=== PATIENT | male | born 1995 | race Caucasian/White ===

== ENCOUNTER 2017-02-17 10:54 | Day surgery (SDC) | payer OTHER ==
--- NOTE | 2017-02-17 07:35 | PDGENHP ---
History and Physical - Chief Complaint Hip Pain - History of Present Illness 1. Right~hip Dysplasia, S/p failed hip arthroscopy 11/06 for USAMA 2. 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 Left borderline Hip Dyplasia 4. Retro-Torsion HISTORY OF PRESENT ILLNESS: Rosalinais a 21 y.o.~very ~active male~who I have had the pleasure to consult on today. I have enjoyed meeting him. He~lives in [facility]. 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 ~He~is engaged; he~has no~children. Rosalina enjoys Hiking and all sports. Shavons has bilateral~hip pain, the Right hip started in November 2014 after he fell while hiking when his foot got caught on a tree root and he fell and twisted the leg. After this he was unable to run without pain, this persisted and he had a Right hip scope in October [address] Mckeon at the [facility]. He felt better for the first several weeks after surgery, while his activity was limited, but as soon as his activity increased his pain returned. His Left hip started bothering him in the past month or two, on this side he had no inciting injury or event. Prior to the fall he never had any hip pain, but he has always had limited ROM in the hips. Rosalinahas~a known history of hip dysplasia. Presentation today is of anterior bilateral~hip pain. The hip does~wake him~at night if he doesn't have a pillow between his legs; and does~click and catch on him. Sitting does not present a problem~for him. Rosalinadoes~report suffering from lower back pain episodes. Rosalinahas~participated in physical therapy and has~tried other conservative measures including massage therapy. He~has not~received sufficient symptomatic improvement. Rosalinahas not~utilized medication for pain management. Rosalinaunderstands that he~has a hip and pelvis problem which should be researched and wishes to get a better understanding of his~hip status, followed by an establishment of a treatment strategy, hoping he~would be able to get back to his~well being active life. History: Past medical history: ~ None which is relevant Relevant familial history: None which is relevant Past surgical history: No. Surgery Anesthesia Year Outcome 1 Tonsils General 1999 Good 2 Right Hip Scope General 2016 Poor Rosalinadenies problematic issues with general anesthesia in the past. I have reviewed, verified and agree with the past medical, surgical, family and social history. Current Medications:~currently has no medications in their medication list. ALLERGIES:~has No Known Allergies. Objective: Physical Examination: Rosalinais 5~feet 6~inches tall and weighs 167~Lbs. Rosalinais AAO x3; he~is well- nourished, in NAD. Skin is warm and dry. ~Breathing is non-labored. ~CV with RRR by pulse. Abdomen is soft, NTND. Currently, he~walks with a normal~gait. Trendelenburg sign is positive on the Right~and proprioception is normal, both~ sides. He~presents with no~signs of joint laxity. Beightons Score: 0 He~is fit looking. ~~ Lower spine examination is negative~for sciatic or femoral nerve irritation with negative~SLR &~femoral stretch tests. Range of motion of the spine is normal~for flexion, extension, and rotations, with no~associated pain. Strength, Sensation and pulses are normal - bilaterally Ankles and knees exams are normal~and no~mal-alignment is evident. He~has no leg length discrepancy. Thigh circumference is symmetric~with no evidence for muscle atrophy~on both~ sides. Hip ROM (degrees): FL ER At 90~hip FL IR At 90~hip FL AB AD EX IR Neutral hip ER Neutral hip R 100 45 15 35 5 5 20 45 L 105 40 15 40 5 5 30 25 Specific hip and pelvis tests: Quadrant PING Roll Add. Longus R +++ +++ Negative + L ++ Negative Negative Negative Glut. Med ITB Pos. Imp R Negative 5/5 strength Negative 5/5 strength Negative L Negative 5/5 strength Negative 5/5 strength Negative Squeeze test measured weak Bony Symphysis pubis is pain free~to touch while concentric activity of the rectus abdominis, does not~produce pain at its insertion. Ilio Psos specific tests are positive for pain during cycling for the right hip~ and remarkable for non painful snap~on both hips. HF has good strength with no pain on both hips. Anterior~capsule tenderness bilaterally. Greater trochanteric burse is pain free~on the left hip. Piriformis tests: FAIR is negative, with no~local signs of neuritis related to sciatic nerve. SIJs examination is normal~with normal~PING in relation and local tenderness. Hamstrings tests are negative~functional contraction and negative~tendinopathy both hips. On a daily basis, the following percentages reflect Steven's overall total Right hip~pain: Deep hip: 99% Low Back: 1% Imaging: Radiology studies which I have personally reviewed, analyzed and measured are below: XR: AP of the hip and pelvis: Performed in a suboptimal~technique Coccyx to pubic symphysis distance -0.8~cm. 10~degrees caudal [place] Lines are preserved. No~Pathological signs are seen in the Symphysis Pubis. No~Pathological signs are seen at the Ischial tuberosity. ~ Specific measurements show: NSA~ LCE Sourcil~Angle Sharp's angle Lat. Cam Lat. Pincer C.Over~sign Head~Coverage % ATDmm R N 17 14 41 - - - 65 N L N 23 12 41 - - - 72 N Pos. wall sign ISS NAD ~~Dysplasia Comments R + Negative 11~mm + L + Negative 12~mm + Sclerosis Sup. Lat. OA Cysts Joint Space-WBZ Joint Space-Medial R Negative Negative Negative 3.8~mm 4.9~mm L Negative Negative Negative 4.2~mm 4.5~mm X Table lateral: Anterior cam lesion is seen~on both hips. Alpha Angle: ~ Right 74~dergrees Left 98~degrees MRI Right Hip shows: Possible labral tear, cartilage intact on both sides CT: Possible anchor tracts anteriorly. Right hip: Lateral center edge angle: 15 degrees Anterior center edge angle: 45degrees Equatorial acetabular version angle: 21 degrees Cranial acetabular version angle: 4 degrees Femoral neck shaft angle: 136 degrees Femoral shaft torsion angle: (-9) degrees Left hip: Lateral center edge angle: 19 degrees Anterior center edge angle: 42 degrees Equatorial acetabular version angle: 29 degrees Cranial acetabular version angle: 10 degrees Femoral neck shaft angle: 140 degrees Femoral shaft torsion angle: (-4)~degrees Impression and plan: Steven~is a 21 y.o.~active male~suffering from symptomatic bilateral~hip pain (R >>>L) due to~right~Hip Dyplasia after failed scope 2016,~causing significant disability to him~and altering his~sport and life activities. Physical examination, imaging, and his~story correspond with the diagnosis mentioned above. I explained that hip dysplasia is a condition wherein the hip joint has excessive play~and instability due to a variety of factors, including the depth and adequacy of the socket, the orientation of the femur bone, and ligament laxity around the hip joint. Dysplasia ranges in severity from borderline to makeda, with treatment options being specific to the specific nature of the problem. Left untreated, the instability in the hip joint can cause progressive tearing of the labrum and deterioration of the surface cartilage, ultimately resulting in progressive osteoarthritis of the hip. I explained that femoroacetabular impingement (USAMA - Cam type) arises due to a bony or soft tissue conflict between the femur (ball) and acetabulum (socket) caused by an abnormality in the shape of the femoral head and neck. Over time, repetitive impingement can result in damage to the labrum and adjacent surface cartilage within the socket, ultimately giving rise to progressive osteoarthritis of the hip. I explained that although a labral tear can be a source of pain, it is rarely the root of the problem and typically occurs secondary to an underlying abnormality in the shape and mechanics of the hip joint. I reviewed conservative treatment options for Dysplasia and USAMA including activity modification to avoid positions of impingement or instability, physical therapy, non-steroidal anti-inflammatory medications, and various injections (corticosteroid and PRP) aimed at reducing inflammation in the hip joint or/and preventing dynamic instability and impingement. PRP injections may promote healing and reduce symptoms in certain cases but it will not repair chronically damaged tissue. Although these measures may help to buy time~and reduce current level of symptoms, they are not a definitive solution to the problem given the underlying abnormality in the shape of the hip joint. Patients who have failed conservative management and continue to experience symptoms are candidates for definitive surgical treatment, which may consist of hip arthroscopy alone or in combination with more invasive bony realignment procedures of the hip socket and/or femur called periacetabular osteotomy (HANNA) or derotational femoral osteotomy (DFO). Hip arthroscopy typically includes treating the labrum with either repair or reconstruction of the torn labrum; as well as addressing the underlying abnormalities by restoring the normal shape to the hip joint. If the cartilage is damaged a Microfracture surgical procedure may also be necessary to help stimulate the growth of fibrocartilage. If a patient requires a labral reconstruction or a Microfracture, the initial rehabilitation from the surgery may take longer, but the intermediate results are typically favorable. I reviewed the technical aspects of periacetabular osteotomy (HANNA) including risks, benefits, and expected course of recovery. Steven~understands that HANNA is an inpatient procedure carried out through two medium sized incisions on the front and back of the hip joint. The hip socket is cut, realigned, and stabilized with 2 3 internal screws. Risks include infection, bleeding, injury to nearby nerves or vessels, stiffness, persistent pain, instability, failure of bony healing, implant related complications, and venous thromboembolic disease. Rarely, revision surgery may be required to address these problems. Risks, potential complications, side effects and recovery from surgical procedure were discussed in length. We explained how this surgery is an open procedure, and though patients tend to do well in the long-term, it involves significant pain in the first 2-4 weeks post-op and a rather lengthy rehab.~Overall recovery takes approximately 6 12~months depending on the extent of damage and degree of repair. Steven~understands that he~will undergo hip arthroscopy 1 week prior to the HANNA to address damage inside the hip joint. Steven~understands that hip arthroscopy and HANNA are two separate procedures that are best performed one week apart, with the arthroscopy commencing first to "tighten up" any pathology evident in the hip joint (labral repair, etc.) and the HANNA open procedure occurring 7-10 days later to realign the acetabulum. I reviewed the technical aspects of derotational femoral osteotomy (DFO) including risks, benefits, and expected course of recovery.~Steven~understands that DFO is a minimally invasive inpatient procedure carried out through a small incision on the outer aspects of the hip joint. The femur bone is cut, realigned, and stabilized with a pati. Risks, potential complications, side effects and recovery from surgical procedure were discussed in length.~Steven~ understands that he/she will undergo hip arthroscopy 1 week prior to the DFO to address damage inside the hip joint to include labral repair and correction of Hip impingement. I reviewed the technical aspects of hip arthroscopy including risks, benefits, and expected course of recovery. Steven~understands that hip arthroscopy is a minimally invasive outpatient procedure carried out through small incisions on the outer aspect of the hip joint. During surgery, the labral tear will be identified and either repaired or reconstructed~using bone anchors and suture material. Additionally, any excessive bone will be removed with a high-speed gisela to reshape the hip joint and restore normal anatomy. Risks include infection, bleeding, injury to nearby nerves or vessels, stiffness, persistent pain, instability, venous thromboembolic disease, and traction related complications including temporary foot numbness. Rarely, revision surgery may be required to address these problems. Overall recovery takes approximately 4~ 8~months depending on the extent of damage and degree of repair. In the event that the labral tissue quality is inadequate for successful repair and healing, Rosalinaunderstands that a labral reconstruction will be performed. This procedure entails placing a cadaver tissue graft within the hip joint and stabilizing it with bone anchors to build a new labrum. The overall recovery time for labral reconstruction is similar to that of labral repair, although the surgical procedure takes longer to perform. Rosalinawill review the info presented. In order to obtain more detailed information regarding the alignment, orientation, and shape of the bony hip and pelvis I will order a CT scan to be performed. The results of the CT scan, including femoral torsion and acetabular version measured values and 3D images, will aid me in deciding on the best treatment strategy and surgical pre-planning. Rosalinawill talk with our surgical instrument maker about possible surgery dates. Rosalinais happy with this plan. I have also supplied him~with handouts, outlining the expected surgical treatment and rehab involved. I wish~Rosalinaall the best, ~~ Rony Koehler IV, MD History Information - Allergies/Home Medication List Allergies/Adverse Reactions: No Known Allergies Allergy (Unverified 01/15/17 16:54) Home Medications: NK [No Known Home Meds] 01/15/17 [Last Taken Unknown] I have personally reviewed and updated: medical history - Social History Smoking Status: Never smoked Review of Systems Review of Systems: Physical Exam Physical Exam:
[~2017-02-17 10:54] MED LIST: ACETAMINOPHEN 500 MG TAB PO ONE; PREGABALIN 150 MG CAP PO ONE; ceFAZolin 2 GM/SWFI 2 GM/20 ML SYR IVP ONE
[2017-02-17] MEDS ORDERED: LIDOCAINE 1% 2 ML INJ ID PRN (11:12)
[2017-02-17] MEDS ORDERED: LR 1,000 ML IV ONE (11:12)
[2017-02-17] MEDS ORDERED: EPINEPHrine 30 MG/30 ML MDV (0.1 MG/0.1 ML) ONE (11:13)
[2017-02-17] MEDS ORDERED: BUPIVACAINE 0.25% 30 ML SDV ONE (11:13)
[2017-02-17] MEDS ORDERED: ACETAMINOPHEN 500 MG TAB ONE (11:43)
[2017-02-17] MEDS ORDERED: ceFAZolin 2 GM/SWFI 20 ML SYR IVP ONE (11:44)
[2017-02-17] MEDS ORDERED: PREGABALIN 150 MG CAP ONE (11:44)
[2017-02-17] MEDS ORDERED: LR 500 ML IV PRN (13:26)
[2017-02-17] MEDS ORDERED: fentaNYL 100 MCG/2 ML INJ IVP PRN (13:26)
[2017-02-17] MEDS ORDERED: PROMETHAZINE HCL 25 MG/ML INJ IVP PRN (13:26)
[2017-02-17] MEDS ORDERED: MIDAZOLAM 2 MG/2 ML VIAL IVP ONE (13:26)
[2017-02-17] MEDS ORDERED: NALOXONE HCL 0.4 MG/ML INJ IVP PRN (13:26)
[2017-02-17] MEDS ORDERED: ONDANSETRON 4 MG/2 ML VIAL IVP PRN (13:26)
[2017-02-17] MEDS ORDERED: OXYCODONE/APAP 5/325 TAB PO PRN (13:26)
[2017-02-17] MEDS ORDERED: HYDROmorphONE/DILAUDID 1 MG/ML INJ IVP PRN (13:26)
[2017-02-17] MEDS ORDERED: ALBUTEROL 3 ML DEYVIAL IH PRN (13:26)
--- NOTE | 2017-02-17 13:26 | PDANEPAE ---
ANE History of Present Illness R Hip ANE Past Medical History - Cardiovascular History Hx Hypertension: No Hx Arrhythmias: No Hx Chest Pain: No Hx Coronary Artery / Peripheral Vascular Disease: No Hx CHF / Valvular Disease: No Hx Palpitations: No - Pulmonary History Hx COPD: No Hx Asthma/Reactive Airway Disease: No Hx Recent Upper Respiratory Infection: No Hx Oxygen in Use at Home: No Hx Sleep Apnea: No Sleep Apnea Screening Result - Last Documented: Negative - Neurologic History Hx Cerebrovascular Accident: No Hx Seizures: No Hx Dementia: No - Endocrine History Hx Diabetes: No - Renal History Hx Renal Disorders: No - Liver History Hx Hepatic Disorders: No - Neurological & Psychiatric Hx Hx Neurological and Psychiatric Disorders: No - Cancer History Hx Cancer: No - Congenital Disorder History Hx Congenital Disorders: No - GI History Hx Gastrointestinal Disorders: No - Other Health History Other Health History: R hip-possible labral tear,. R hip dysplasia - Chronic Pain History Chronic Pain: Yes (R hip) - Surgical History Prior Surgeries: R hip arthroscopy 8-16. tonsillectomy & root canal ANE Review of Systems Review of Systems: - Exercise capacity METS (RN): 4 METS ANE Patient History - Allergies Allergies/Adverse Reactions: No Known Allergies Allergy (Unverified 01/15/17 16:54) - Home Medications Home Medications: NK [No Known Home Meds] 01/15/17 [Last Taken Unknown] - NPO status NPO Since - Liquids (Date): 02/17/17 NPO Since - Liquids (Time): 09:30 NPO Since - Solids (Date): 02/16/17 NPO Since - Solids (Time): 21:00 - Smoking Hx Smoking Status: Never smoked ANE Labs/Vital Signs - Vital Signs Blood Pressure: 127/62 Heart Rate: 70 Respiratory Rate: 18 O2 Sat (%): 98 Height: 167.64 cm Weight: 75.75 kg ANE Physical Exam - Airway Neck exam: FROM Mallampati Score: Class 2 Mouth exam: normal dental/mouth exam - Pulmonary Pulmonary: clear to auscultation - Cardiovascular Cardiovascular: regular rate and rhythym - ASA Status ASA Status: I ANE Anesthesia Plan Anesthesia Plan: general endotracheal anesthesia
[2017-02-17] MEDS ORDERED: LIDOCAINE 2% 5 ML SDV ONE (14:27)
[2017-02-17] MEDS ORDERED: HYDROmorphONE/DILAUDID 2 MG/ML INJ ONE (14:27)
[2017-02-17] MEDS ORDERED: PROPOFOL 200 MG/20 ML VIAL ONE (14:28)
[2017-02-17] MEDS ORDERED: ROCURONIUM 50 MG/5 ML VIAL ONE ×2 (14:49→16:20)
[2017-02-17] MEDS ORDERED: DEXAMETHASONE 4 MG/ML VIAL ONE (14:50)
[2017-02-17] MEDS ORDERED: ONDANSETRON 4 MG/2 ML VIAL ONE (14:50)
[2017-02-17] MEDS ORDERED: RANITIDINE 50 MG/2 ML VIAL ONE (14:51)
[2017-02-17] MEDS ORDERED: SUGAMMADEX SODIUM 200 MG/2 ML VIAL IVP ONE (17:43)
--- NOTE | 2017-02-17 17:58 | POSTANESTH ---
Post Anesthetic Evaluation Cardiovascular Status: Normal, Stable Respiratory Status: Normal, Stable Level of Consciousness/Mental Status: Can Participate in Eval, Mildly Sleepy, Arousable Pain Control: Adequate, Prn Tx Ordered Nausea/Vomiting Control: Adequate, Prn Tx Ordered Complications Possibly Related to Anesthesia: None Noted
[2017-02-17 18:10] VITALS: PULSE 66
[2017-02-17 18:50] VITALS: RESP 18; TEMP 97.7; O2SAT 98
[2017-02-17 19:02] VITALS: BP 117/62
== END 2017-02-17 19:12 | disposition home or self-care (01) ==
LOC: FSGY 10:54 → EDSTATUS 11:00 → FSGY 19:12
PROVIDERS: ATTEND Orthopaedic Surgery Sports Medicine
PROC: 0SB94ZZ Excision of Right Hip Joint, Percutaneous Endoscopic Approach (ICD-10-PCS; principal; 2017-02-17 12:30)
PROC: 0SQ94ZZ Repair Right Hip Joint, Percutaneous Endoscopic Approach (ICD-10-PCS; principal; 2017-02-17 12:30)
DX: M25.851 Other specified joint disorders, right hip (principal); Q65.89 Other specified congenital deformities of hip; M16.2 Bilateral osteoarthritis resulting from hip dysplasia; M25.551 Pain in right hip; M25.552 Pain in left hip
CPT/HCPCS: C1713; J0171; J0690; J1100; J1170; J2250; J2405; J2704; J2780

== ENCOUNTER 2017-02-24 05:43 | Inpatient (IN) | payer OTHER ==
--- NOTE | 2017-02-20 21:19 | PDGENHP ---
History and Physical - Chief Complaint Right Hip Pain - History of Present Illness 1. Right~hip Dysplasia, S/p failed hip arthroscopy 11/06 for USAMA 2. 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 Left borderline Hip Dyplasia 4. Retro-Torsion HISTORY OF PRESENT ILLNESS: Rosalinais a 21 y.o.~very ~active male~who I have had the pleasure to consult on today. I have enjoyed meeting him. He~lives in [facility]. 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 ~He~is engaged; he~has no~children. Rosalina enjoys Hiking and all sports. Shavons has bilateral~hip pain, the Right hip started in November 2014 after he fell while hiking when his foot got caught on a tree root and he fell and twisted the leg. After this he was unable to run without pain, this persisted and he had a Right hip scope in October [address] Mckeon at the [facility]. He felt better for the first several weeks after surgery, while his activity was limited, but as soon as his activity increased his pain returned. His Left hip started bothering him in the past month or two, on this side he had no inciting injury or event. Prior to the fall he never had any hip pain, but he has always had limited ROM in the hips. Rosalinahas~a known history of hip dysplasia. Presentation today is of anterior bilateral~hip pain. The hip does~wake him~at night if he doesn't have a pillow between his legs; and does~click and catch on him. Sitting does not present a problem~for him. Rosalinadoes~report suffering from lower back pain episodes. Rosalinahas~participated in physical therapy and has~tried other conservative measures including massage therapy. He~has not~received sufficient symptomatic improvement. Rosalinahas not~utilized medication for pain management. Rosalinaunderstands that he~has a hip and pelvis problem which should be researched and wishes to get a better understanding of his~hip status, followed by an establishment of a treatment strategy, hoping he~would be able to get back to his~well being active life. History: Past medical history: ~ None which is relevant Relevant familial history: None which is relevant Past surgical history: No. Surgery Anesthesia Year Outcome 1 Tonsils General 1999 Good 2 Right Hip Scope General 2016 Poor Rosalinadenies problematic issues with general anesthesia in the past. I have reviewed, verified and agree with the past medical, surgical, family and social history. Current Medications:~currently has no medications in their medication list. ALLERGIES:~has No Known Allergies. Objective: Physical Examination: Rosalinais 5~feet 6~inches tall and weighs 167~Lbs. Rosalinais AAO x3; he~is well- nourished, in NAD. Skin is warm and dry. ~Breathing is non-labored. ~CV with RRR by pulse. Abdomen is soft, NTND. Currently, he~walks with a normal~gait. Trendelenburg sign is positive on the Right~and proprioception is normal, both~ sides. He~presents with no~signs of joint laxity. Beightons Score: 0 He~is fit looking. ~~ Lower spine examination is negative~for sciatic or femoral nerve irritation with negative~SLR &~femoral stretch tests. Range of motion of the spine is normal~for flexion, extension, and rotations, with no~associated pain. Strength, Sensation and pulses are normal - bilaterally Ankles and knees exams are normal~and no~mal-alignment is evident. He~has no leg length discrepancy. Thigh circumference is symmetric~with no evidence for muscle atrophy~on both~ sides. Hip ROM (degrees): FL ER At 90~hip FL IR At 90~hip FL AB AD EX IR Neutral hip ER Neutral hip R 100 45 15 35 5 5 20 45 L 105 40 15 40 5 5 30 25 Specific hip and pelvis tests: Quadrant PNIG Roll Add. Longus R +++ +++ Negative + L ++ Negative Negative Negative Glut. Med ITB Pos. Imp R Negative 5/5 strength Negative 5/5 strength Negative L Negative 5/5 strength Negative 5/5 strength Negative Squeeze test measured weak Bony Symphysis pubis is pain free~to touch while concentric activity of the rectus abdominis, does not~produce pain at its insertion. Ilio Psos specific tests are positive for pain during cycling for the right hip~ and remarkable for non painful snap~on both hips. HF has good strength with no pain on both hips. Anterior~capsule tenderness bilaterally. Greater trochanteric burse is pain free~on the left hip. Piriformis tests: FAIR is negative, with no~local signs of neuritis related to sciatic nerve. SIJs examination is normal~with normal~PING in relation and local tenderness. Hamstrings tests are negative~functional contraction and negative~tendinopathy both hips. On a daily basis, the following percentages reflect Steven's overall total Right hip~pain: Deep hip: 99% Low Back: 1% Imaging: Radiology studies which I have personally reviewed, analyzed and measured are below: XR: AP of the hip and pelvis: Performed in a suboptimal~technique Coccyx to pubic symphysis distance -0.8~cm. 10~degrees caudal [place] Lines are preserved. No~Pathological signs are seen in the Symphysis Pubis. No~Pathological signs are seen at the Ischial tuberosity. ~ Specific measurements show: NSA~ LCE Sourcil~Angle Sharp's angle Lat. Cam Lat. Pincer C.Over~sign Head~Coverage % ATDmm R N 17 14 41 - - - 65 N L N 23 12 41 - - - 72 N Pos. wall sign ISS NAD ~~Dysplasia Comments R + Negative 11~mm + L + Negative 12~mm + Sclerosis Sup. Lat. OA Cysts Joint Space-WBZ Joint Space-Medial R Negative Negative Negative 3.8~mm 4.9~mm L Negative Negative Negative 4.2~mm 4.5~mm X Table lateral: Anterior cam lesion is seen~on both hips. Alpha Angle: ~ Right 74~dergrees Left 98~degrees MRI Right Hip shows: Possible labral tear, cartilage intact on both sides CT: Possible anchor tracts anteriorly. Right hip: Lateral center edge angle: 15 degrees Anterior center edge angle: 45degrees Equatorial acetabular version angle: 21 degrees Cranial acetabular version angle: 4 degrees Femoral neck shaft angle: 136 degrees Femoral shaft torsion angle: (-9) degrees Left hip: Lateral center edge angle: 19 degrees Anterior center edge angle: 42 degrees Equatorial acetabular version angle: 29 degrees Cranial acetabular version angle: 10 degrees Femoral neck shaft angle: 140 degrees Femoral shaft torsion angle: (-4)~degrees Impression and plan: Steven~is a 21 y.o.~active male~suffering from symptomatic bilateral~hip pain (R >>>L) due to~right~Hip Dyplasia after failed scope 2016,~causing significant disability to him~and altering his~sport and life activities. Physical examination, imaging, and his~story correspond with the diagnosis mentioned above. I explained that hip dysplasia is a condition wherein the hip joint has excessive play~and instability due to a variety of factors, including the depth and adequacy of the socket, the orientation of the femur bone, and ligament laxity around the hip joint. Dysplasia ranges in severity from borderline to makeda, with treatment options being specific to the specific nature of the problem. Left untreated, the instability in the hip joint can cause progressive tearing of the labrum and deterioration of the surface cartilage, ultimately resulting in progressive osteoarthritis of the hip. I explained that femoroacetabular impingement (USAMA - Cam type) arises due to a bony or soft tissue conflict between the femur (ball) and acetabulum (socket) caused by an abnormality in the shape of the femoral head and neck. Over time, repetitive impingement can result in damage to the labrum and adjacent surface cartilage within the socket, ultimately giving rise to progressive osteoarthritis of the hip. I explained that although a labral tear can be a source of pain, it is rarely the root of the problem and typically occurs secondary to an underlying abnormality in the shape and mechanics of the hip joint. I reviewed conservative treatment options for Dysplasia and USAMA including activity modification to avoid positions of impingement or instability, physical therapy, non-steroidal anti-inflammatory medications, and various injections (corticosteroid and PRP) aimed at reducing inflammation in the hip joint or/and preventing dynamic instability and impingement. PRP injections may promote healing and reduce symptoms in certain cases but it will not repair chronically damaged tissue. Although these measures may help to buy time~and reduce current level of symptoms, they are not a definitive solution to the problem given the underlying abnormality in the shape of the hip joint. Patients who have failed conservative management and continue to experience symptoms are candidates for definitive surgical treatment, which may consist of hip arthroscopy alone or in combination with more invasive bony realignment procedures of the hip socket and/or femur called periacetabular osteotomy (HANNA) or derotational femoral osteotomy (DFO). Hip arthroscopy typically includes treating the labrum with either repair or reconstruction of the torn labrum; as well as addressing the underlying abnormalities by restoring the normal shape to the hip joint. If the cartilage is damaged a Microfracture surgical procedure may also be necessary to help stimulate the growth of fibrocartilage. If a patient requires a labral reconstruction or a Microfracture, the initial rehabilitation from the surgery may take longer, but the lobsterman results are typically favorable. I reviewed the technical aspects of periacetabular osteotomy (HANNA) including risks, benefits, and expected course of recovery. Steven~understands that HANNA is an inpatient procedure carried out through two medium sized incisions on the front and back of the hip joint. The hip socket is cut, realigned, and stabilized with 2 3 internal screws. Risks include infection, bleeding, injury to nearby nerves or vessels, stiffness, persistent pain, instability, failure of bony healing, implant related complications, and venous thromboembolic disease. Rarely, revision surgery may be required to address these problems. Risks, potential complications, side effects and recovery from surgical procedure were discussed in length. We explained how this surgery is an open procedure, and though patients tend to do well in the long-term, it involves significant pain in the first 2-4 weeks post-op and a rather lengthy rehab.~Overall recovery takes approximately 6 12~months depending on the extent of damage and degree of repair. Steven~understands that he~will undergo hip arthroscopy 1 week prior to the HANNA to address damage inside the hip joint. Steven~understands that hip arthroscopy and HANNA are two separate procedures that are best performed one week apart, with the arthroscopy commencing first to "tighten up" any pathology evident in the hip joint (labral repair, etc.) and the HANNA open procedure occurring 7-10 days later to realign the acetabulum. I reviewed the technical aspects of derotational femoral osteotomy (DFO) including risks, benefits, and expected course of recovery.~Steven~understands that DFO is a minimally invasive inpatient procedure carried out through a small incision on the outer aspects of the hip joint. The femur bone is cut, realigned, and stabilized with a pati. Risks, potential complications, side effects and recovery from surgical procedure were discussed in length.~Steven~ understands that he/she will undergo hip arthroscopy 1 week prior to the DFO to address damage inside the hip joint to include labral repair and correction of Hip impingement. I reviewed the technical aspects of hip arthroscopy including risks, benefits, and expected course of recovery. Rosalinaunderstands that hip arthroscopy is a minimally invasive outpatient procedure carried out through small incisions on the outer aspect of the hip joint. During surgery, the labral tear will be identified and either repaired or reconstructed~using bone anchors and suture material. Additionally, any excessive bone will be removed with a high-speed gisela to reshape the hip joint and restore normal anatomy. Risks include infection, bleeding, injury to nearby nerves or vessels, stiffness, persistent pain, instability, venous thromboembolic disease, and traction related complications including temporary foot numbness. Rarely, revision surgery may be required to address these problems. Overall recovery takes approximately 4~ 8~months depending on the extent of damage and degree of repair. In the event that the labral tissue quality is inadequate for successful repair and healing, Rosalinaunderstands that a labral reconstruction will be performed. This procedure entails placing a cadaver tissue graft within the hip joint and stabilizing it with bone anchors to build a new labrum. The overall recovery time for labral reconstruction is similar to that of labral repair, although the surgical procedure takes longer to perform. Rosalinawill review the info presented. In order to obtain more detailed information regarding the alignment, orientation, and shape of the bony hip and pelvis I will order a CT scan to be performed. The results of the CT scan, including femoral torsion and acetabular version measured values and 3D images, will aid me in deciding on the best treatment strategy and surgical pre-planning. Rosalinawill talk with our surgical tech about possible surgery dates. Rosalinais happy with this plan. I have also supplied him~with handouts, outlining the expected surgical treatment and rehab involved. I wish~Rosalinaall the best, ~~ Rony Koehler IV, MD History Information - Allergies/Home Medication List Allergies/Adverse Reactions: No Known Allergies Allergy (Unverified 01/15/17 16:54) Home Medications: NK [No Known Home Meds] 01/15/17 [Last Taken Unknown] I have personally reviewed and updated: medical history - Social History Smoking Status: Never smoked Review of Systems Review of Systems: Physical Exam Physical Exam:
[2017-02-24] MEDS ORDERED: ACETAMINOPHEN 500 MG TAB PO ONE (05:59)
[2017-02-24] MEDS ORDERED: PREGABALIN 150 MG CAP PO ONE (05:59)
[2017-02-24] MEDS ORDERED: SCOPOLAMINE HYDROBROMIDE 1 MG/3 DAYS PATCH TD ONE (05:59)
[2017-02-24] MEDS ORDERED: ceFAZolin 2 GM/SWFI 2 GM/20 ML SYR IVP ONE (05:59)
[2017-02-24] MEDS ORDERED: TRANEXAMIC ACID 1,000 MG in NS 100 ML IV ONE (06:00)
[2017-02-24] MEDS ORDERED: RANITIDINE 50 MG/2 ML VIAL ONE ×2 (06:54→16:10)
[2017-02-24] MEDS ORDERED: MIDAZOLAM 2 MG/2 ML VIAL ONE ×2 (06:54→07:19)
[2017-02-24] MEDS ORDERED: DEXAMETHASONE 4 MG/ML VIAL ONE ×2 (06:54→16:10)
[2017-02-24] MEDS ORDERED: fentaNYL 100 MCG/2 ML INJ ONE ×2 (06:55→12:37)
[2017-02-24] MEDS ORDERED: PROPOFOL/EMULSION 500 MG/50 ML BOTTLE IV ONE ×4 (06:55→14:06)
[2017-02-24] MEDS ORDERED: MIDAZOLAM 2 MG/2 ML VIAL IVP ONE (07:10)
--- NOTE | 2017-02-24 07:12 | PDANEPAE ---
ANE Past Medical History - Cardiovascular History Hx Hypertension: No Hx Arrhythmias: No Hx Chest Pain: No Hx Coronary Artery / Peripheral Vascular Disease: No Hx CHF / Valvular Disease: No Hx Palpitations: No - Pulmonary History Hx COPD: No Hx Asthma/Reactive Airway Disease: No Hx Recent Upper Respiratory Infection: No Hx Oxygen in Use at Home: No Hx Sleep Apnea: No - Neurologic History Hx Cerebrovascular Accident: No Hx Seizures: No Hx Dementia: No - Endocrine History Hx Diabetes: No - Renal History Hx Renal Disorders: No - Liver History Hx Hepatic Disorders: No - Neurological & Psychiatric Hx Hx Neurological and Psychiatric Disorders: No - Cancer History Hx Cancer: No - Congenital Disorder History Hx Congenital Disorders: No - GI History Hx Gastrointestinal Disorders: No - Other Health History Other Health History: R hip-possible labral tear,. R hip dysplasia - Chronic Pain History Chronic Pain: Yes (R hip) - Surgical History Prior Surgeries: R hip arthroscopy 8-16. tonsillectomy & root canal ANE Review of Systems Review of Systems: ANE Patient History - Allergies Allergies/Adverse Reactions: No Known Allergies Allergy (Unverified 01/15/17 16:54) - Home Medications Home Medications: NK [No Known Home Meds] 01/15/17 [Last Taken Unknown] - NPO status NPO Since - Liquids (Date): 02/23/17 NPO Since - Liquids (Time): 19:00 NPO Since - Solids (Date): 02/23/17 NPO Since - Solids (Time): 19:00 - Smoking Hx Smoking Status: Never smoked ANE Labs/Vital Signs - Labs Result Diagrams: 02/24/17 05:59 - Vital Signs Blood Pressure: 117/58 Heart Rate: 56 Respiratory Rate: 16 O2 Sat (%): 97 Height: 170.18 cm Weight: 77.111 kg ANE Physical Exam - Airway Mallampati Score: Class 1 Mouth exam: normal dental/mouth exam - Pulmonary Pulmonary: no respiratory distress - Cardiovascular Cardiovascular: regular rate and rhythym - ASA Status ASA Status: II (healthy health)
[2017-02-24] MEDS ORDERED: BUPIVACAINE 0.25% 30 ML SDV ONE ×2 (07:16→08:22)
[2017-02-24 07:23] LABS: % IMMATURE GRANULYOCYTES 1.2 % (0.0-1.1); ABSOLUTE IMMATURE GRANULOCYTES 0.07 10^3/uL (0.00-0.10); ABSOLUTE NRBC COUNT 0.04 10^3/uL (0-0.01); ADD DIFF? NO; ADD MORPH? NO; ADD SCAN? NO; ATYPICAL LYMPHOCYTE FLAG 0 (0-99); FRAGMENT RBC FLAG 0 (0-99); HEMATOCRIT 36.1 % (40.0-51.0); HEMOGLOBIN 13.5 g/dL (13.7-17.5); LEFT SHIFT FLG 10 (0-99); LIPEMIA HEMOLYSIS FLAG 90 (0-99); MEAN CELL HEMOGLOBIN 30.2 pg (27.9-34.1); MEAN CELL HEMOGLOBIN CONCENTR. 37.4 g/dL (32.4-36.7); MEAN CELL VOLUME 80.8 fL (81.5-99.8); MEAN PLATELET VOLUME 10.3 fL (8.7-11.7); NRBC-AUTO% 0.7 % (0.0-0.2); PLATELET CLUMPS FLAG 10 (0-99); PLATELET COUNT 187 10^3/uL (150-400); RED BLOOD CELL COUNT 4.47 10^6/uL (4.40-6.38); RED CELL DISTRIBUTION WIDTH 13.2 % (11.5-15.2)
[2017-02-24] MEDS ORDERED: CITRATE DEXTROSE SOLN 500 ML BAG ONE ×3 (08:21→14:49)
[2017-02-24] MEDS ORDERED: NARCOTIC DRIP BAG-TOTAL ALL TYPES EP PRN (09:14)
[2017-02-24] MEDS ORDERED: METOCLOPRAMIDE 10 MG/2 ML VIAL IVP PRN (09:14)
[2017-02-24] MEDS ORDERED: NALOXONE HCL 0.4 MG/ML INJ IVP PRN ×2 (09:14→15:57)
[2017-02-24] MEDS ORDERED: diphenhydrAMINE 25 MG CAP PO PRN (09:14)
[2017-02-24] MEDS ORDERED: ONDANSETRON 4 MG/2 ML VIAL IVP PRN (09:15)
[2017-02-24] MEDS ORDERED: ALBUMIN 5% 250 ML BOTTLE IV ONE (14:22)
[2017-02-24] MEDS ORDERED: HYDROmorphONE/DILAUDID 1 MG/ML INJ IVP PRN (15:57)
[2017-02-24] MEDS ORDERED: SUGAMMADEX SODIUM 200 MG/2 ML VIAL IVP ONE (16:10)
[2017-02-24] MEDS ORDERED: ROCURONIUM 50 MG/5 ML VIAL ONE (16:10)
[2017-02-24] MEDS ORDERED: ONDANSETRON 4 MG/2 ML VIAL ONE (16:10)
[2017-02-24] MEDS ORDERED: PHENYLEPHRINE HCL 100 MCG/ML SYR ONE (16:10)
--- NOTE | 2017-02-24 16:35 | POSTANESTH ---
Post Anesthetic Evaluation Respiratory Status: Normal, Stable Level of Consciousness/Mental Status: Can Participate in Eval Pain Control: Adequate, Prn Tx Ordered Nausea/Vomiting Control: Adequate, Prn Tx Ordered Complications Possibly Related to Anesthesia: None Noted (ANTHONY running pt awake and not in pain)
[2017-02-24] MEDS ORDERED: POLYETHYLENE GLYCOL 3350 17 GM PKT PO PRN (16:50)
[2017-02-24] MEDS ORDERED: LACTULOSE 20 GM/30 ML UDCUP PO PRN (16:50)
[2017-02-24] MEDS ORDERED: MAGNESIUM HYDROXIDE 30 ML UDCUP PO PRN (16:50)
[2017-02-24] MEDS: ceFAZolin 2 GM/DEXTROSE 100 ML IV SCH (18:44)
[2017-02-24] MEDS: REGARDING ANTICOAG MISC SCH (18:50)
[2017-02-24] MEDS: DC NARCS MISC SCH (18:50)
--- NOTE | 2017-02-24 21:06 | SUROPNOTE ---
SHON Operative Report - Surgery Surgery was performed at [facility] 07/03/16~ Diagnosis: Right 1. Hip Acetabular Dysplasia~ 2. Retro torsion of femur R ~ Operation 1: Right~Eda Acetabular Osteotomy (HANNA) Surgeon: Baltazar German MD Risk Management Specialist:~~Alvaro Brenner AP Anesthetic: General + epidural Procedure: General anesthetic. Antibiotics given. Cell saver in use. Fluoroscopy. Phase 1: Position lateral, diagonal skin incision between ischial tuberosity and greater trochanter as for posterior hip approach. Blunt split of glut max fibers. Identification of fat pad overlying sciatic nerve. Exposure of sciatic nerve under fat pad, gently retracting it away-medially to ischial tuberosity. Exposure of subcotoloid fossa proximal to short rotators. Using osteotomes and under fluoroscopy, osteotomy of subcotoloid fossa to sciatic notch proximal to ischial spine. Closure of lateral cut. Patient is turned supine. Phase 2: Skin incision just distal to ASIS. Using diathermy the iliac spine was exposed and inguinal ligament + Sartorious were retracted medially, taking the LFCN with them, protecting it. Inner ilium was dissected from iliacus muscle bluntly , with a cob and swab. Dissection continued towards lateral superior ramus pubis. Using fluoroscopy an osteotomy of lateral superior ramus, just medial to tear drop, was performed with curved fish mouth osteotome. Phase 3: Osteotomy lines of the ilium were marked with diathermy as pre planned according to XR/CT and expected correction of acatabulum. 2 Shanz screws were drilled into central acetabular fragment, corresponding with planned correction angles, in order to mobilize central acetabular fragment after osteotomy is complete. ~Iliac osteotomy was performed with reciprocating saw and the main acetabular fragment was moved to realign weight bearing position. After confirmation of correction using fluoroscopy in AP and false profile planes, the fragment was fixed with 2 - 5.5mm ~full threaded~screws~and 1 - 4mm~~full threaded~screw. Inguinal ligament and Sartorious were attached back to ASIS through drill holes. Incision was closed according to soft tissue layers. Skin was closed with subdermal Monocryl. Final fluoro shots were obtained to confirm position/correction. Operation 2: Open right~derotational femoral osteotomy Supine position, prep-drape. C-arm. Lateral incision guided by c-arm just under GT. ITB was incised and so was the VL underneath. Femur was exposed and various plates were located at the planned osteotomy site to decide on the best fit. A Prox femir plate was chosen and KW used to aliza location of plate. Two Shanz pins were drilled Prox (GT) and distal at mid femur to control correction after osteotomy. Under c-arm osteotomy was performed and plate was fixed proximally and then distally. Proximal screws had to be shorter than 80mm which was the shortest locking screw and as such 6mm and 8mm screws were used with a washer. Distal locking screws 4.5mm were screwed in. Position was verified with c-arm in AP and lateral multiple times throughout the process. Closure according to anatomical layers. After surgery,~Steven~moved both lower limbs and had no NV compromise. ROM in neutral hip corresponded well with the torsion change. Evaluation under anesthesia: IR at 90 degrees hip flexion prior to HANNA was 0-5~degrees and after HANNA was 20~ degrees. Bleedin~cc into cell-saver, 1500~of blood products were returned to patient. Post op instructions: 1. Non~weight bearing crutches for 6 weeks 2. Epidural analgesia for 24-48 hours 3. Continuous SCD 4. Aspirin 81 mg X1 day once Epidural is discontinued 5. Avoid hip flexion past 90 and hip External rotation. 6. PT according to my recommendations at follow up visit Kind regards, Dr German
[2017-02-24] MEDS: SENNOSIDES/DOCUSATE SODIUM TAB PO SCH (21:20)
[2017-02-25] MEDS: ceFAZolin 2 GM/DEXTROSE 100 ML IV SCH ×2 (03:11→10:05)
[2017-02-25] MEDS: HYDROmorph 10MCG/ML&BUP 0.1% in 100ML NS EP SCH ×2 (05:50→16:42)
[2017-02-25 06:09] LABS: ANION GAP 7 mEq/L (8-16); CALCIUM 8.2 mg/dL (8.5-10.4); CARBON DIOXIDE 28 mEq/l (22-31); CHLORIDE 100 mEq/L (97-110); CREATININE 1.1 mg/dL (0.7-1.3); GLOMERULAR FILTRATION RATE > 60; GLUCOSE 123 mg/dL (70-100); POTASSIUM 4.4 mEq/L (3.5-5.2); SODIUM 135 mEq/L (134-144)
[2017-02-25 06:26] LABS: HEMATOCRIT 23.7 % (40.0-51.0); HEMOGLOBIN 8.8 g/dL (13.7-17.5); MEAN CELL HEMOGLOBIN 30.3 pg (27.9-34.1); MEAN CELL HEMOGLOBIN CONCENTR. 37.1 g/dL (32.4-36.7); MEAN CELL VOLUME 81.7 fL (81.5-99.8); RED BLOOD CELL COUNT 2.9 10^6/uL (4.40-6.38); RED CELL DISTRIBUTION WIDTH 13.3 % (11.5-15.2)
[2017-02-25] MEDS: SENNOSIDES/DOCUSATE SODIUM TAB PO SCH ×2 (10:04→21:01)
[2017-02-25] MEDS: REGARDING ANTICOAG MISC SCH (11:21)
[2017-02-25] MEDS: DC NARCS MISC SCH (11:21)
--- NOTE | 2017-02-25 13:45 | SOAPPROG ---
SOAP Progress Note Assessment/Plan: Assessment: Doing well with pain control on Continuous Epidural. Plan: Continue Epidural wean tomorrow 02/25/17 13:42 Objective: Vital Signs Temp Pulse Resp BP Pulse Ox 37.1 C 96 16 104/45 L 98 02/25/17 12:05 02/25/17 12:05 02/25/17 12:05 02/25/17 12:05 02/25/17 12:05 Laboratory Results 02/25/17 05:00 02/25/17 05:00 02/24/17 02/25/17 02/26/17 05:59 05:59 05:59 Intake Total 3790 Output Total 4700 1100 Balance -910 -1100 Pain level rated at 4/10 using bolus infrequently. - Time Spent With Patient Time Spent With Patient: Pt evaluated for 10 minutes - Pending Discharge Pending Discharge Within 24 Hours: No Pending Discharge Within 48 Hours: No ICD10 Worksheet Patient Problems: Problems Problem Status Onset Post-operative pain Acute
--- NOTE | 2017-02-25 15:19 | ASMTCMCOM ---
CM Note CM Note Notes: OT rec home, PT rec home and 24/hr supervision. Per therapy note pt plans to d/c to hotel. Anticipate pt will d/c when medically stable. CM available for changes/needs. Date Signed: 02/25/2017 03:19 PM Electronically Signed By:GHADA Krueger
--- NOTE | 2017-02-25 21:54 | SOAPPROG ---
SOAP Progress Note Assessment/Plan: Assessment: 1 day post op Right Periacetabular Osteotomy Plan: PCEA per anesthesia, wean down and off tomorrow with transition to oral analgesia. pelvis xray on POD#3 PT/OT Low H/H: transfuse lower than 7Hgb or symptomatic 02/25/17 21:50 02/25/17 21:58 Subjective: Troy describes Right shoulder pain (which he sustained weeks prior to hip scope) that does not feel controlled right now. Epidural is managing his hip pain well. He denies any cp, sob or nausea right now. He feels weak and we discussed his expected low H/H. Objective: Vital Signs Temp Pulse Resp BP Pulse Ox 37.9 C 112 H 18 90/34 L 97 02/25/17 20:00 02/25/17 20:00 02/25/17 20:00 02/25/17 20:00 02/25/17 20:00 Laboratory Results 02/25/17 05:00 02/25/17 05:00 02/24/17 02/25/17 02/26/17 05:59 05:59 05:59 Intake Total 3790 1999 Output Total 4700 9650 Balance -910 -850 well appearing Right hip dressings clean dry intact surrounding ecchymosis edema NVI distally full ROM of foot and ankle ICD10 Worksheet Patient Problems: Problems Problem Status Onset Post-operative pain Acute - ICD10 Problem Qualifiers (1) Post-operative pain
[2017-02-26] MEDS: HYDROmorph 10MCG/ML&BUP 0.1% in 100ML NS EP SCH ×2 (00:48→12:33)
[2017-02-26] MEDS: ACETAMINOPHEN 325 MG TAB PO PRN ×4 (01:30→22:06)
[2017-02-26] MEDS ORDERED: HYDROmorphONE/DILAUDID 1 MG/ML INJ IVP PRN (07:59)
--- NOTE | 2017-02-26 08:08 | SOAPPROG ---
SOAP Progress Note Assessment/Plan: Assessment: POD#2 s/p R HANNA and femoral osteotomy, doing well overall Plan: - wean off epidural and onto oral pain medicines - encourage IS - OOB TID; PT/OT - d.c peñaloza once epidural out for 4 hours - strict bowel regimen with regular diet - XR tomorrow - anticipate d.c to home on Friday02/26/17 08:05 Subjective: Minimal nausea, no emesis. Tolerating regular diet. Passing gas. OOB once yesterday. No n/t. Pain controlled. Objective: Vital Signs Temp Pulse Resp BP Pulse Ox 38.4 C H 104 H 16 98/41 L 93 02/26/17 07:29 02/26/17 07:29 02/26/17 07:29 02/26/17 07:29 02/26/17 07:29 Laboratory Results 02/25/17 05:00 02/25/17 05:00 02/25/17 02/26/17 02/27/17 05:59 05:59 05:59 Intake Total 3790 3475 Output Total 4700 4500 Balance -910 -1025 GEN - NAD, AO ABD - soft, NT, ND BLE - dressing c/d/i 5/5 dorsi and plantar flexion SILT L2 - S1 and symmetric with diminished in R LFCN Palpable dp and pt pulses, WWP ICD10 Worksheet Patient Problems: Problems Problem Status Onset Post-operative pain Acute
[2017-02-26] MEDS: SENNOSIDES/DOCUSATE SODIUM TAB PO SCH ×2 (09:02→20:38)
[2017-02-26] MEDS: oxyCODONE IR 5 MG TAB PO SCH ×4 (10:39→22:05)
[2017-02-26] MEDS: DC NARCS MISC SCH (11:04)
[2017-02-26] MEDS: REGARDING ANTICOAG MISC SCH (11:04)
[2017-02-26] MEDS ORDERED: NS 1,000 ML IV ONE (11:20)
[2017-02-26 11:34] LABS: ADD DIFF? YES; MEAN CELL HEMOGLOBIN 30.8 pg (27.9-34.1); MEAN CELL VOLUME 78.7 fL (81.5-99.8); MEAN PLATELET VOLUME 10.6 fL (8.7-11.7); PLATELET COUNT 117 10^3/uL (150-400); RED BLOOD CELL COUNT 2.11 10^6/uL (4.40-6.38); RED CELL DISTRIBUTION WIDTH 13.2 % (11.5-15.2)
[2017-02-26 11:36] LABS: HEMOGLOBIN 6.5 g/dL (13.7-17.5); MEAN CELL HEMOGLOBIN CONCENTR. 39.2 g/dL (32.4-36.7)
[2017-02-26 11:39] LABS: HEMATOCRIT 16.6 % (40.0-51.0)
[2017-02-26 11:41] LABS: ADD MORPH? YES
[2017-02-26 12:09] LABS: MICROCYTES 2+; PLATELET ESTIMATE DECREASED (ADEQ)
--- NOTE | 2017-02-26 16:27 | SOAPPROG ---
SOAP Progress Note Assessment/Plan: Assessment: Doing well with pain control on Continuous Epidural. Plan: Continue Epidural wean tomorrow 02/25/17 13:42 02/26/17 16:24 Assesment, good pain control. Significant post op anemia, compensated with tachycardia with rate in 130's. Receiving blood transfusion. Plan: continue ween with further reduction of ANTHONY settings. Will shut ANTHONY off tomorrow 6am. If pain managed with oral meds will plan to DC ANTHONY and pull early tomorrow afternoon. Objective: Vital Signs Temp Pulse Resp BP Pulse Ox 38.3 C H 125 H 16 112/49 L 95 02/26/17 15:55 02/26/17 15:55 02/26/17 15:55 02/26/17 15:55 02/26/17 15:55 Laboratory Results 02/26/17 10:58 02/25/17 05:00 02/25/17 02/26/17 02/27/17 05:59 05:59 05:59 Intake Total 3790 3475 2000 Output Total 4700 4500 2400 Balance -910 -1025 -400 Pain Controlled with ANTHONY at 50% settings. Pt is anemic, tachycardic, and receiving a transfusion of 2 units of PRC's. - Pending Discharge Pending Discharge Within 24 Hours: No Pending Discharge Within 48 Hours: No ICD10 Worksheet Patient Problems: Problems Problem Status Onset Post-operative pain Acute
[2017-02-26] MEDS: ASPIRIN EC 81 MG TAB PO SCH (18:32)
[2017-02-26] MEDS: oxyCODONE IR 5 MG TAB PO PRN (20:38)
[2017-02-27] MEDS: oxyCODONE IR 5 MG TAB PO SCH ×6 (02:12→21:49)
[2017-02-27] MEDS: DIAZEPAM 2 MG TAB PO PRN (03:52)
[2017-02-27] MEDS: oxyCODONE IR 5 MG TAB PO PRN ×3 (03:52→23:46)
[2017-02-27 05:22] LABS: HEMATOCRIT 24.9 % (40.0-51.0); HEMOGLOBIN 9.5 g/dL (13.7-17.5)
[2017-02-27] MEDS: ASPIRIN EC 81 MG TAB PO SCH (08:12)
[2017-02-27] MEDS: SENNOSIDES/DOCUSATE SODIUM TAB PO SCH ×2 (08:12→21:47)
[2017-02-27] MEDS: REGARDING ANTICOAG MISC SCH (08:13)
[2017-02-27] MEDS: DC NARCS MISC SCH (08:13)
[2017-02-27] MEDS: ONDANSETRON 4 MG/2 ML VIAL IVP PRN (10:04)
[2017-02-27] MEDS: ACETAMINOPHEN 325 MG TAB PO PRN ×3 (11:02→23:45)
--- NOTE | 2017-02-27 16:31 | SOAPPROG ---
SOAP Progress Note Assessment/Plan: Assessment: Doing well with pain control on Continuous Epidural. Plan: Continue Epidural wean tomorrow 02/25/17 13:42 02/26/17 16:24 Assesment, good pain control. Significant post op anemia, compensated with tachycardia with rate in 130's. Receiving blood transfusion. Plan: continue ween with further reduction of ANTHONY settings. Will shut ANTHONY off tomorrow 6am. If pain managed with oral meds will plan to DC ANTHONY and pull early tomorrow afternoon. 02/27/17 16:33 Assessment Pain still significant did not tolerate wean. Now on low settings. Plan will DC ANTHONY infusion in early am. Complete Transition to oral meds in am. If tolerating will remove ANTHONY tomorrow afternoon. Subjective: ANTHONY continued due to high pain level during wean. Objective: Vital Signs Temp Pulse Resp BP Pulse Ox 38.6 C H 106 H 12 112/50 L 97 02/27/17 15:40 02/27/17 15:40 02/27/17 15:40 02/27/17 15:40 02/27/17 15:40 Laboratory Results 02/27/17 05:01 02/25/17 05:00 02/26/17 02/27/17 02/28/17 05:59 05:59 05:59 Intake Total 3475 7082 Output Total 4500 8050 1050 Balance -1025 -968 -1050 Heart rate now 118. Less fever. Pain controlled on low ANTHONY settings. - Time Spent With Patient Time Spent With Patient: 10 minutes spent ICD10 Worksheet Patient Problems: Problems Problem Status Onset Post-operative pain Acute
--- NOTE | 2017-02-27 21:00 | SOAPPROG ---
HARRY Progress Note Assessment/Plan: Assessment: Plan: 02/27/17 20:57 Saw Troy today, POD 3, he is feeling stronger after 2 units as Hb went up from 6.5 to 9.5 NV is intact but pain around surgical area is still significant. he still uses epi, plan on wean off tomorrow. Right shoulder is very painful, probably SA bursitis. we discussed injection if narcotics for hip would not alleviate his pain. XR looks good probably few more days before discharge. Dr German Objective: Vital Signs Temp Pulse Resp BP Pulse Ox 38.3 C 117 H 18 119/63 95 02/27/17 19:54 02/27/17 19:54 02/27/17 19:54 02/27/17 19:54 02/27/17 19:54 Laboratory Results 02/27/17 05:01 02/25/17 05:00 02/26/17 02/27/17 02/28/17 05:59 05:59 05:59 Intake Total 7935 7082 Output Total 4427 3185 3000 [facility] -1025 -968 -3000 ICD10 Worksheet Patient Problems: Problems Problem Status Onset Post-operative pain Acute
[2017-02-27] MEDS: HYDROmorph 10MCG/ML&BUP 0.1% in 100ML NS EP SCH (21:26)
[2017-02-28] MEDS: oxyCODONE IR 5 MG TAB PO SCH ×6 (03:13→22:17)
[2017-02-28 04:40] LABS: HEMATOCRIT 24.1 % (40.0-51.0)
[2017-02-28 04:56] LABS: ALANINE AMINOTRANSFERASE 49 IU/L (21-72); ALBUMIN 2.7 g/dL (3.5-5.0); ALKALINE PHOSPHATASE 36 IU/L (38-126); ANION GAP 10 mEq/L (8-16); ASPARTATE AMINOTRANSFERASE 119 IU/L (17-59); BILIRUBIN,TOTAL 2.7 mg/dL (0.1-1.4); CALCIUM 8.3 mg/dL (8.5-10.4); CARBON DIOXIDE 28 mEq/l (22-31); CHLORIDE 101 mEq/L (97-110); CREATININE 0.9 mg/dL (0.7-1.3); GLOMERULAR FILTRATION RATE > 60; GLUCOSE 103 mg/dL (70-100); POTASSIUM 4.1 mEq/L (3.5-5.2); SODIUM 139 mEq/L (134-144); TOTAL PROTEIN 4.7 g/dL (6.3-8.2)
[2017-02-28 05:03] LABS: BILIRUBIN-CONJUGATED 0.3 mg/dL (0.0-0.5); BILIRUBIN-UNCONJUGATED 2.4 mg/dL (0.0-1.1)
[2017-02-28] MEDS: SENNOSIDES/DOCUSATE SODIUM TAB PO SCH ×2 (08:10→20:14)
[2017-02-28] MEDS: ASPIRIN EC 81 MG TAB PO SCH (08:11)
[2017-02-28] MEDS: oxyCODONE IR 5 MG TAB PO PRN ×2 (08:16→15:50)
[2017-02-28] MEDS: REGARDING ANTICOAG MISC SCH (08:18)
[2017-02-28] MEDS: DC NARCS MISC SCH (08:18)
--- NOTE | 2017-02-28 08:59 | SOAPPROG ---
SOAP Progress Note Assessment/Plan: Assessment: 4th day post op Right Periacetabular Osteotomy Plan: PCEA per anesthesia, currently turned off will be pulled later today PT/OT oral analgesics H/H low but stable at 9 up from 09/06 home in the next day or so 02/25/17 21:50 02/25/17 21:58 02/28/17 08:56 02/28/17 09:02 Subjective: Troy is feeling better today. His Right shoulder continues to hurt, he is well pain managed in his lower extremity with the oral analgesics right now. He denies any cp, sob, or nausea, still a bit light headed when getting up out of bed. Objective: Vital Signs Temp Pulse Resp BP Pulse Ox 36.8 C 100 16 105/56 L 92 02/28/17 04:00 02/28/17 04:00 02/28/17 04:00 02/28/17 04:00 02/28/17 04:00 Laboratory Results 02/28/17 04:30 02/28/17 04:30 02/27/17 02/28/17 03/01/17 05:59 05:59 05:59 Intake Total 7082 900 Output Total 8050 5100 Balance -968 -4200 well appearing in NAD Right hip: dressings clean dry intact scattered ecchymosis edema no thigh numbness NVI distally full ROM of foot and ankle ICD10 Worksheet Patient Problems: Problems Problem Status Onset Post-operative pain Acute - ICD10 Problem Qualifiers (1) Post-operative pain
[2017-02-28] MEDS: HYDROmorphone HCL/NS/PF 0.4 MG/2 ML SYR IVP PRN ×3 (09:15→15:54)
[2017-02-28] MEDS: ONDANSETRON 4 MG/2 ML VIAL IVP PRN ×2 (10:01→16:55)
[2017-02-28] MEDS: ACETAMINOPHEN 325 MG TAB PO PRN (10:28)
--- NOTE | 2017-02-28 12:12 | ASMTCMCOM ---
CM Note CM Note Notes: D/c plan of care remains home independent with support of . No CM d/c needs identified. Anticipate pt will d/c when medically stable. CM available for d/c needs. Date Signed: 02/28/2017 12:11 PM Electronically Signed By:GHADA Krueger
--- NOTE | 2017-02-28 12:52 | SOAPPROG ---
SOAP Progress Note Assessment/Plan: Assessment: Doing well with pain control on Continuous Epidural. Plan: Continue Epidural wean tomorrow 02/25/17 13:42 02/26/17 16:24 Assesment, good pain control. Significant post op anemia, compensated with tachycardia with rate in 130's. Receiving blood transfusion. Plan: continue ween with further reduction of ANTHONY settings. Will shut ANTHONY off tomorrow 6am. If pain managed with oral meds will plan to DC ANTHONY and pull early tomorrow afternoon. 02/27/17 16:33 Assessment Pain still significant did not tolerate wean. Now on low settings. Plan will DC ANTHONY infusion in early am. Complete Transition to oral meds in am. If tolerating will remove ANTHONY tomorrow afternoon. 02/28/17 12:46 Assesment: Continued tachycardia about 115, Hct 24, ANTHOYN off times 6 hrs, with nausea and one episode of vomiting, some chills. Plan: Removal of ANTHONY catheter. Done with catheter intact and no evidence of infection at insertion site. Further note: Chayo Graham. for Gely Adelfo contacted and IV CDL DRIVER for narcotics suggested to temporize and avoid need for oral narcotic until present clinical condition has improved. Possible need for further transfusion and further evaluation to rule out other etiology for return of tachycardia suggested. This note indicates completion of my contribution to this patients care. Luis Paz M.D. Anesthesiology Objective: Vital Signs Temp Pulse Resp BP Pulse Ox 37.7 C 121 H 16 103/43 L 90 L 02/28/17 11:22 02/28/17 11:22 02/28/17 11:22 02/28/17 11:22 02/28/17 11:22 Laboratory Results 02/28/17 04:30 02/28/17 04:30 02/27/17 02/28/17 03/01/17 05:59 05:59 05:59 Intake Total 7082 900 Output Total 8050 5100 400 Balance -968 -4200 -400 ICD10 Worksheet Patient Problems: Problems Problem Status Onset Post-operative pain Acute
[2017-02-28] MEDS ORDERED: HYDROmorphONE/DILAUDID 1 MG/ML INJ IVP ONE (13:27)
[2017-02-28] MEDS ORDERED: NALOXONE HCL 0.4 MG/ML INJ IVP PRN (13:27)
[2017-02-28] MEDS ORDERED: HYDROmorphONE/DILAUDID 6 MG/30 ML PCA IV PRN (13:27)
[2017-02-28] MEDS ORDERED: HYDROmorphone HCL/NS/PF 0.4 MG/2 ML SYR IVP ONE (13:30)
[2017-02-28] MEDS: NAPROXEN SODIUM 220 MG TAB PO SCH ×2 (14:26→20:14)
[2017-02-28] MEDS ORDERED: POLYETHYLENE GLYCOL 3350 17 GM PKT PO ONE (15:09)
--- NOTE | 2017-02-28 15:49 | GCON ---
[f rep st] CONSULTATION DATE OF CONSULTATION: 02/28/2017 HISTORY OF PRESENT ILLNESS: The patient is a 21-year-old male who is postop day 4 from and extensive hip surgery by Dr. Baltazar German. The surgery he had is a right periacetabular osteotomy. The patient has done really, really well though he did have some acute blood loss anemia requiring tr ansfusion. He was transfused 2 units on the 6th. He has had intermittent fevers since then as well as tachycardia, nausea and vomiting. He has no chest pain. No shortness of breath. He does have a bit of abdominal pain. He did not associate a cleared link between his pain medications and the vomi ting. He has taken some Percocet as an outpatient following arthroscopy last week. He has not had a bowel movement. He has no personal or family history of venous thromboembolic disease. He still beasley s his gallbladder. There is no family history of cholecystitis. REVIEW OF SYSTEMS: Complete 10-point review of systems conducted and negative except as noted in the HPI. PAST MEDICAL HISTORY: Essentially none other than a labral tear right hip. SOCIAL HISTORY: He drinks rare alcohol. He does not smoke cigarettes. He lives in [place]. 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. FAMILY HISTORY: As in the HPI. ALLERGIES: No known drug allergies. HOME MEDICATIONS: None. PHYSICAL EXAM: VITAL SIGNS: Now, blood pressure 103/43, pulse was about 100 when I was in there, br eathing 16 times a minute, 98% on room air, temp 37.7, his last full temperature was 38.3 last evenin g. GENERAL: No acute distress. HEENT: Sclerae anicteric. Oropharynx clear. Mucous membranes are moist. NECK: Supple without lymphadenopathy or JVD. LUNGS: Clear to auscultation bilaterally. H EART: S1, S2 without murmurs. ABDOMEN: Soft. There is a little bit of tenderness in the upper cecil drants without rebound or guarding. LOWER EXTREMITIES: On his right lower extremity, he has good daren salis pedis pulse. There are multiple surgical bandages. There is some bruising but no firm hematoma . His right lower extremity is unremarkable. NEUROLOGIC: Unremarkable. SKIN: Without rash. LABS: Today, his hemoglobin and hematocrit are 9 and 24.1. Sodium 139, potassium 4.1, chloride 101, bicarb 28, BUN 13, creatinine 0.9, glucose 103, calcium 8.3, total bilirubin is 2.7, unconjugated bi lirubin is 2.4 with no priors for comparison. His AST is 119, alkaline phosphatase low at 36, albumi n is 2.7. I have discussed the case Dr. Baltazar German and reviewed and summarized records in the HPI. ASSESSMENT/PLAN: A 21-year-old gentleman with postoperative fever and tachycardia. 1. Fever: The potential causes are numerous including a routine postop fever and/or the fever of se sharon blood loss anemia that occasionally happens in a young healthy person. He does have some muscle aches and vomiting. I will send and influenza and I will draw some blood cultures. He does have an elevated bilirubin which I suspect is from his transfusion and a little bit of abdominal tenderness. I will repeat those labs tomorrow. I do not think he has pneumonia. Also, on this differential is v enous thromboembolic disease. He is not on prophylaxis so I would recommended, as his blood loss is noted, if he develops shortness of breath or further tachycardia, then for evaluation venous thromboe mbolism should be pursued. 2. Elevated bilirubin. I suspect this is either transfusion and/or underlying Gilbert's. I have rep eated tomorrow. If it is progressive or he has more abdominal pain and vomiting, ultrasound should b e performed. Elevated AST is probably postsurgical from muscle. 3. Acute blood loss anemia. His hemoglobin and hematocrit are 9 and 24. He does not have evidence h ematoma. Would Follow. 4. Constipation: He has not had bowel movements. Give him some MiraLAX. DISPOSITION: Inpatient status. Thank you for this consultation. Hospital Medicine will follow. /[id number]/MODL
[2017-02-28 16:03] LABS: LACTATE DEHYDROGENASE 777 IU/L (313-618)
--- NOTE | 2017-03-01 00:32 | SOAPPROG ---
HARRY Progress Note Assessment/Plan: Assessment: Plan: 02/27/17 20:57 Saw Troy today, POD 3, he is feeling stronger after 2 units as Hb went up from 6.5 to 9.5 NV is intact but pain around surgical area is still significant. he still uses epi, plan on wean off tomorrow. Right shoulder is very painful, probably SA bursitis. we discussed injection if narcotics for hip would not alleviate his pain. XR looks good probably few more days before discharge. Dr German 03/01/17 00:29 Saw patient 02/28 POD 4, doing better this evening after work up by Internal medicine. Symptoms most likely due to major surgery post op course, anemia and constipation, doesn't look like infection. mechanical DVT prophylaxis in place. Need to get stronger, get confidence with transition, folly need to come out tomorrow to avoid UTI. Dr German Objective: Vital Signs Temp Pulse Resp BP Pulse Ox 36.5 C 84 16 119/63 94 02/28/17 22:44 03/01/17 00:00 03/01/17 00:00 03/01/17 00:00 03/01/17 00:00 Laboratory Results 02/28/17 04:30 02/28/17 04:30 02/27/17 02/28/17 03/01/17 05:59 05:59 05:59 Intake Total 7082 900 1600 Output Total 8060 5100 2950 [facility] -968 -4200 -1350 ICD10 Worksheet Patient Problems: Problems Problem Status Onset Post-operative pain Acute
[2017-03-01] MEDS: oxyCODONE IR 5 MG TAB PO SCH ×6 (01:24→21:20)
[2017-03-01 05:04] LABS: ABSOLUTE IMMATURE GRANULOCYTES 0.06 10^3/uL (0.00-0.10); ADD DIFF? NO; ADD MORPH? NO; ADD SCAN? NO; ATYPICAL LYMPHOCYTE FLAG 0 (0-99); FRAGMENT RBC FLAG 0 (0-99); HEMATOCRIT 23.8 % (40.0-51.0); HEMOGLOBIN 8.4 g/dL (13.7-17.5); LEFT SHIFT FLG 0 (0-99); LIPEMIA HEMOLYSIS FLAG 90 (0-99); MEAN CELL HEMOGLOBIN CONCENTR. 35.3 g/dL (32.4-36.7); MEAN PLATELET VOLUME 10.3 fL (8.7-11.7); PLATELET CLUMPS FLAG 0 (0-99); PLATELET COUNT 149 10^3/uL (150-400); RED CELL DISTRIBUTION WIDTH 14.4 % (11.5-15.2)
[2017-03-01 05:22] LABS: ALANINE AMINOTRANSFERASE 74 IU/L (21-72); ALBUMIN 2.6 g/dL (3.5-5.0); ALKALINE PHOSPHATASE 88 IU/L (38-126); ANION GAP 11 mEq/L (8-16); ASPARTATE AMINOTRANSFERASE 132 IU/L (17-59); BILIRUBIN,TOTAL 2.5 mg/dL (0.1-1.4); CALCIUM 8.4 mg/dL (8.5-10.4); CARBON DIOXIDE 30 mEq/l (22-31); CHLORIDE 100 mEq/L (97-110); CREATININE 0.8 mg/dL (0.7-1.3); GLOMERULAR FILTRATION RATE > 60; GLUCOSE 98 mg/dL (70-100); POTASSIUM 3.8 mEq/L (3.5-5.2); SODIUM 141 mEq/L (134-144); TOTAL PROTEIN 4.7 g/dL (6.3-8.2)
[2017-03-01 05:28] LABS: BILIRUBIN-CONJUGATED 0.3 mg/dL (0.0-0.5); BILIRUBIN-UNCONJUGATED 2.2 mg/dL (0.0-1.1)
[2017-03-01] MEDS: DIAZEPAM 2 MG TAB PO PRN ×3 (06:09→20:40)
[2017-03-01] MEDS: NAPROXEN SODIUM 220 MG TAB PO SCH ×2 (07:38→20:41)
[2017-03-01] MEDS: SENNOSIDES/DOCUSATE SODIUM TAB PO SCH ×2 (07:38→20:40)
[2017-03-01] MEDS: ASPIRIN EC 81 MG TAB PO SCH (07:38)
[2017-03-01] MEDS: ONDANSETRON 4 MG/2 ML VIAL IVP PRN (07:48)
[2017-03-01] MEDS: POLYETHYLENE GLYCOL 3350 17 GM PKT PO SCH (08:00)
[2017-03-01] MEDS: oxyCODONE IR 5 MG TAB PO PRN ×2 (08:02→21:21)
--- NOTE | 2017-03-01 09:42 | HOSPPROG ---
Hospitalist Progress Note Assessment/Plan: # fever, quite elevated but no clear infection: fever curve improved in last 24 hours; note WBC count is normal - acute post-op, doubt malignancy or rheumatology - agree with monitoring off abx; consider VTE but no clear DVT/PE at this point # mild transaminitis/elev unconj bili - slightly higher today; possibly component of Gilbert's but that doesn't explain AST/ALT - will check abd US today # elev LDH - possible post-op - needs outpatient f/u for recheck in 1 month; no abnormal cells seen on smear # ABLA - s/p transfusion # peñaloza - dc per Dr German Subjective: still feels weak, run down Objective: Vital Signs Temp Pulse Resp BP Pulse Ox 36.9 C 78 16 105/59 L 96 03/01/17 07:29 03/01/17 07:29 03/01/17 07:29 03/01/17 07:29 03/01/17 07:29 Laboratory Results 03/01/17 04:34 03/01/17 04:34 02/28/17 03/01/17 03/02/17 05:59 05:59 05:59 Intake Total 900 2100 Output Total 5100 4450 Balance -4200 -2350 chart reviewed pelvic XR reviewed - Physical Exam Constitutional: other (tired) Cardiovascular: regular rate and rhythym, no murmur, rub, or gallop Respiratory: no respiratory distress, no rales or rhonchi, clear to auscultation Gastrointestinal: normoactive bowel sounds, soft, non-tender abdomen, no palpable masses ICD10 Worksheet Patient Problems: Problems Problem Status Onset Post-operative pain Acute
[2017-03-01] MEDS ORDERED: MAGNESIUM HYDROXIDE 30 ML UDCUP PO ONE (09:48)
[2017-03-01] MEDS: DC NARCS MISC SCH (10:01)
[2017-03-01] MEDS: REGARDING ANTICOAG MISC SCH (10:01)
--- NOTE | 2017-03-01 11:37 | SOAPPROG ---
SOAP Progress Note Assessment/Plan: Assessment: POD#5 s/p R HANNA and femoral osteotomy, doing well overall Plan: - continue oral pain control with IV for breakthrough - NWB RLE with crutches/walker; PT/OT; TID OOB with RN - [email or web address] peñaloza - strict bowel regimen with goal to have BM over weekend; miralax added, enemas prn - postop anemia stable - appreciate hospitalist recs - f/u blood cultures pending, but been afebrile (temps < 38.5) for > 24 hours - d.c planning to home vs SNF by Friday or Friday03/01/17 11:33 Subjective: Pain controlled. Feeling better every day. NO n/v. No n/t. No fevers/chills. Tolerating regular diet. Passing gas, no BM yet. ready for peñaloza to come out Objective: Vital Signs Temp Pulse Resp BP Pulse Ox 36.9 C 78 16 105/59 L 96 03/01/17 07:29 03/01/17 07:29 03/01/17 07:29 03/01/17 07:29 03/01/17 07:29 Laboratory Results 03/01/17 04:34 03/01/17 04:34 02/28/17 03/01/17 03/02/17 05:59 05:59 05:59 Intake Total 900 2100 200 Output Total 5100 4450 Balance -4200 -2350 200 GEN - NAD, AO ABD - soft, NT, ND BLE - dressing c/d/i 5/5 dorsi and plantar flexion SILT L2 - S1, diminished in R LFCN - stable palpable dp and pt pulses, BCR ICD10 Worksheet Patient Problems: Problems Problem Status Onset Post-operative pain Acute
[2017-03-01] MEDS: HYDROmorphone HCL/NS/PF 0.4 MG/2 ML SYR IVP PRN ×3 (12:22→20:45)
[2017-03-01] MEDS: ONDANSETRON DISINTEGRATING 4 MG TAB PO PRN (14:31)
--- NOTE | 2017-03-01 16:15 | ASMTCMCOM ---
CM Note CM Note Notes: Pt and Maris requested information on d/c plan options and are interested in SNF to see if insurance can pay for placement so they do not have to d/c to a hotel. Explained at this time with OT recommending home and PT recommending home w 24/hr supervision, insurance likely not to pay for SNF. Pt and have no friends/family here in [place] to stay w [place]. Explained they may have to d/c to hotel or ambulance transport home to get pt up the stairs. Maris reports she will work w MD office to get specific documentation pt on orders for no stairs. Of note: Maris states she will not be at hospital until late in the pm tomorrow because she has to work. Maris requests OT/PT re-eval as she has not communicated to therapies that they live on the 3rd floor of an apartment complex w no elevator and pt is on orders for no stairs. CM to follow: inform therapies of this request and living arrangement for d/c planning. Date Signed: 03/01/2017 04:15 PM Electronically Signed By:GHADA Krueger
[2017-03-01] MEDS: BISACODYL 10 MG SUPP PR PRN (17:36)
[2017-03-01] MEDS: ACETAMINOPHEN 325 MG TAB PO PRN (20:40)
[2017-03-02] MEDS: oxyCODONE IR 5 MG TAB PO SCH ×6 (01:42→21:25)
[2017-03-02] MEDS: oxyCODONE IR 5 MG TAB PO PRN ×2 (01:43→16:33)
[2017-03-02] MEDS: DIAZEPAM 2 MG TAB PO PRN ×3 (05:03→21:26)
[2017-03-02] MEDS: ACETAMINOPHEN 325 MG TAB PO PRN ×2 (05:03→21:25)
[2017-03-02 05:31] LABS: ALANINE AMINOTRANSFERASE 70 IU/L (21-72); ALBUMIN 2.8 g/dL (3.5-5.0); ALKALINE PHOSPHATASE 104 IU/L (38-126); ANION GAP 8 mEq/L (8-16); ASPARTATE AMINOTRANSFERASE 99 IU/L (17-59); BILIRUBIN,TOTAL 2.1 mg/dL (0.1-1.4); CALCIUM 8.8 mg/dL (8.5-10.4); CARBON DIOXIDE 28 mEq/l (22-31); CHLORIDE 103 mEq/L (97-110); CREATININE 0.8 mg/dL (0.7-1.3); GLOMERULAR FILTRATION RATE > 60; GLUCOSE 94 mg/dL (70-100); POTASSIUM 4.3 mEq/L (3.5-5.2); SODIUM 139 mEq/L (134-144); TOTAL PROTEIN 5.2 g/dL (6.3-8.2)
[2017-03-02 05:38] LABS: BILIRUBIN-CONJUGATED 0.2 mg/dL (0.0-0.5); BILIRUBIN-UNCONJUGATED 1.9 mg/dL (0.0-1.1)
[2017-03-02] MEDS: BISACODYL 10 MG SUPP PR PRN (08:17)
[2017-03-02] MEDS: NAPROXEN SODIUM 220 MG TAB PO SCH ×2 (09:56→21:24)
[2017-03-02] MEDS: ASPIRIN EC 81 MG TAB PO SCH (09:56)
[2017-03-02] MEDS: ONDANSETRON DISINTEGRATING 4 MG TAB PO PRN (10:00)
--- NOTE | 2017-03-02 11:18 | HOSPPROG ---
Hospitalist Progress Note Assessment/Plan: # fever, quite elevated but no clear infection: afebrile now x 48 hours - acute post-op, doubt malignancy or rheumatology - agree with monitoring off abx; consider VTE but no clear DVT/PE at this point # mild transaminitis/elev unconj bili - improved; likely d/t gilbert's vs transfusion # elev LDH - possible post-op - needs outpatient f/u for recheck in 1 month; no abnormal cells seen on smear # ABLA - s/p transfusion # peñaloza - dc per Dr German # constipation - resolved Subjective: had a BM this am; abd feels much better Objective: Vital Signs Temp Pulse Resp BP Pulse Ox 37.0 C 96 16 117/58 L 94 03/02/17 07:43 03/02/17 07:43 03/02/17 07:43 03/02/17 07:43 03/02/17 07:43 Laboratory Results 03/01/17 04:34 03/02/17 04:30 03/01/17 03/02/17 03/03/17 05:59 05:59 05:59 Intake Total 2100 550 Output Total 4450 1850 Balance -2350 -1300 - Physical Exam Constitutional: no apparent distress, appears nourished, No chronically ill appearing Eyes: anicteric sclera Ears, Nose, Mouth, Throat: hearing normal Gastrointestinal: soft, non-tender abdomen, No ascites, No nunez's sign, No guarding, No rebound, No distension Genitourinary: No peñaloza in urethra Skin: warm, normal color Neurologic: AAOx3 Psychiatric: interacting appropriately, not anxious ICD10 Worksheet Patient Problems: Problems Problem Status Onset Post-operative pain Acute
--- NOTE | 2017-03-02 11:39 | SOAPPROG ---
SOAP Progress Note Assessment/Plan: Assessment: POD# s/p R HANNA and femoral osteotomy, doing well overall Plan: - continue oral pain control attempting no IV for anticipation of discharge tomorrow (written for if needed though) - NWB RLE with crutches/walker; PT/OT; TID OOB with RN - strict bowel regimen to continue - postop anemia stable - appreciate hospitalist recs; will recommend PCP follow-up for elevated LDH in 1 month - continues to remain afebrile for > 48 hrs and prelim blood cultures negative - d.c planning to home vs other tomorrow 03/01/17 11:33 03/02/17 11:36 Subjective: Had large BM earlier and patient feels well. No n/v. No n/t. No f/c. Pain well controlled on orals. Feels he will be ready for discharge tomorrow. Objective: Vital Signs Temp Pulse Resp BP Pulse Ox 36.6 C 94 16 119/68 98 03/02/17 11:20 03/02/17 11:20 03/02/17 11:20 03/02/17 11:20 03/02/17 11:20 Laboratory Results 03/01/17 04:34 03/02/17 04:30 03/01/17 03/02/17 03/03/17 05:59 05:59 05:59 Intake Total 2100 550 400 Output Total 4450 1850 350 Balance -2350 -1300 50 GEN - NAD, AO ABD - soft, nt, nd BLE - dressing c/d/i - 5/5 dorsi and plantar flexion - SILT L2- S1, reduced in R LFCN only - BCR, WWP ICD10 Worksheet Patient Problems: Problems Problem Status Onset Post-operative pain Acute
[2017-03-02] MEDS: POLYETHYLENE GLYCOL 3350 17 GM PKT PO SCH (12:07)
[2017-03-02] MEDS: SENNOSIDES/DOCUSATE SODIUM TAB PO SCH ×2 (12:07→21:25)
--- NOTE | 2017-03-02 17:26 | ASMTCMCOM ---
CM Note CM Note Notes: Please see CM note from 03/01 also. PT/OT now recommending home w/24 hr care vs inpatient rehab. Pt stairs at apt complex is an issue since they live on 3rd floor w/no elevator. Met w/pt to discuss; his first choice would be to do a very short stay at inpatient rehab if he qualifies. We discussed option of hotel for few days but that didn't seem to be option since insurance would not cover. Left voicemail for Inpatient rehab and will follow up w/them in the AM. CM will also need to touch base w/MD regarding dc poc. CM will follow. Date Signed: 03/02/2017 05:26 PM Electronically Signed By:Caren Cisneros RN
[2017-03-03] MEDS: oxyCODONE IR 5 MG TAB PO SCH ×6 (01:37→22:13)
[2017-03-03] MEDS: ACETAMINOPHEN 325 MG TAB PO PRN ×2 (05:21→22:14)
[2017-03-03] MEDS: SENNOSIDES/DOCUSATE SODIUM TAB PO SCH ×2 (09:38→22:13)
[2017-03-03] MEDS: NAPROXEN SODIUM 220 MG TAB PO SCH ×2 (09:38→22:14)
[2017-03-03] MEDS: ASPIRIN EC 81 MG TAB PO SCH (09:39)
[2017-03-03] MEDS: POLYETHYLENE GLYCOL 3350 17 GM PKT PO SCH (09:39)
--- NOTE | 2017-03-03 14:56 | HOSPPROG ---
Hospitalist Progress Note Assessment/Plan: # fever, quite elevated but no clear infection: afebrile now x 72 hours - resolved; no abx # mild transaminitis/elev unconj bili - improved; likely d/t gilbert's vs transfusion # elev LDH - possible post-op - needs outpatient f/u for recheck in 1 month; no abnormal cells seen on smear # ABLA - s/p transfusion # constipation - resolved Subjective: no acute events; no diarrhea; afebrile overnight Objective: Vital Signs Temp Pulse Resp BP Pulse Ox 36.6 C 87 12 123/60 H 96 03/03/17 08:00 03/03/17 08:00 03/03/17 08:00 03/03/17 08:00 03/03/17 08:00 Laboratory Results 03/01/17 04:34 03/02/17 04:30 03/02/17 03/03/17 03/04/17 05:59 05:59 05:59 Intake Total 550 2300 450 Output Total 5969 8887 325 Balance -1300 -2775 125 - Physical Exam Constitutional: no apparent distress, appears nourished Eyes: anicteric sclera ICD10 Worksheet Patient Problems: Problems Problem Status Onset Post-operative pain Acute
[2017-03-03] MEDS: DIAZEPAM 2 MG TAB PO PRN (22:17)
--- NOTE | 2017-03-03 22:53 | SOAPPROG ---
SOAP Progress Note Assessment/Plan: Assessment: 7th day post op Right Periacetabular Osteotomy Plan: PT/OT transfer to acute inpatient rehab tomorrow oral analgesics 02/25/17 21:50 02/25/17 21:58 02/28/17 08:56 02/28/17 09:02 03/03/17 22:50 Subjective: Troy was seen this morning around 10am. At that time he was well pain managed, no nausea cp or sob. He is concerned about climbing 3 flights of stairs at home and is requesting acute inpatient rehab. Objective: Vital Signs Temp Pulse Resp BP Pulse Ox 36.6 C 81 16 111/47 L 98 03/03/17 16:00 03/03/17 16:00 03/03/17 16:00 03/03/17 16:00 03/03/17 16:00 Laboratory Results 03/01/17 04:34 03/02/17 04:30 03/02/17 03/03/17 03/04/17 05:59 05:59 05:59 Intake Total 550 2300 1600 Output Total 1850 4975 1000 Balance -1300 -2675 600 well appearing in NAD Right hip: dresssings clean dry intact ecchymosis edema NVI distally Full ROM of foot and ankle - Pending Discharge Pending Discharge Within 24 Hours: Yes Pending Discharge Date: 03/04/17 Pending Discharge Time: 11:00 ICD10 Worksheet Patient Problems: Problems Problem Status Onset Post-operative pain Acute - ICD10 Problem Qualifiers (1) Post-operative pain
[2017-03-04] MEDS: oxyCODONE IR 5 MG TAB PO SCH ×5 (00:54→17:48)
[2017-03-04] MEDS: NAPROXEN SODIUM 220 MG TAB PO SCH (07:58)
[2017-03-04] MEDS: SENNOSIDES/DOCUSATE SODIUM TAB PO SCH (07:58)
[2017-03-04] MEDS: ASPIRIN EC 81 MG TAB PO SCH (07:58)
[2017-03-04] MEDS: DIAZEPAM 2 MG TAB PO PRN ×2 (07:59→17:52)
[2017-03-04] MEDS: POLYETHYLENE GLYCOL 3350 17 GM PKT PO SCH (07:59)
[2017-03-04 08:22] VITALS: BP 133/49; PULSE 79; RESP 18; TEMP 98.6; O2SAT 99
--- NOTE | 2017-03-04 16:17 | ASMTCMCOM ---
CM Note CM Note Notes: Patient had hoped for a short rehab stint before returning home - he was declined by inpatient rehab for being too good, and [employer] was not able to receive insurance authorization today. Patient felt that he did not need to remain inpatient while waiting for the insurance authorization. He lives with his and [id number] who will help him get up the stairs into his home. Once he's upstairs, he feels safe taking care of himself. He will follow up with Dr German as directed. Date Signed: 03/04/2017 04:17 PM Electronically Signed By:Gely Connolly RN
--- NOTE | 2017-03-05 09:07 | ASDISCHSUM ---
Discharge Information Plan Status:Home with No Needs Medically Cleared to Leave: Discharge Date:03/04/2017 08:22 PM CM D/C Disposition:Home, Routine, Self-Care ADT D/C Disposition:Home, Routine, Self-Care Projected Discharge Date:03/04/2017 11:00 AM Transportation at D/C:Family Discharge Delay Reason: Follow-Up Date:03/04/2017 11:00 AM Discharge Slot: Final Diagnosis: Placement Information Referral Type[facility]NF Referral ID:[id number] Provider Name: Address 1: Phone Number: Address 2: Fax Number: City: Selection Factors: State: Patient Contact Information Contact Name:KATHY Relationship: Address:[address] Work Phone: City:[place] Alternate Phone: [facility]/Zip Code:[place] [address] Email: Financial Information Financial Class:HMO and PPO Plans Primary Plan Desc:[facility] Primary Plan Number:[id number] Secondary Plan Desc: Secondary Plan Number: Assessment Information [facility] CM Progress Note CM Note CM Note Notes: OT rec home, PT rec home and 24/hr supervision. Per therapy note pt plans to d/c to hot. Anticipate pt will d/c when medically stable. CM available for changes/needs. Date Signed: 02/25/2017 03:19 PM Electronically Signed By:GHADA Krueger [facility] CM Progress Note CM Note CM Note Notes: D/c plan of care remains home independent with support of . No CM d/c needs identified. Anticipate pt will d/c when medically stable. CM available for d/c needs. Date Signed: 02/28/2017 12:11 PM Electronically Signed By:GHADA Krueger [facility] CM Progress Note CM Note CM Note Notes: Pt and Maris requested information on d/c plan options and are interested in SNF to see if insurance can pay for placement so they do not have to d/c to a hotel. Explained at this time with OT recommending home and PT recommending home w 24/hr supervision, insurance likely not to pay for SNF. Pt and have no friends/family [place] stay [place]. Explained they may have to d/c to hotel or ambulance transport home to get pt up the stairs. Maris reports she will work w MD office to get specific documentation pt on orders for no stairs. Of note: Maris states she will not be at hospital until late in the pm tomorrow because she has to work. Maris requests OT/PT re-eval as she has not communicated to therapies that they live on the 3rd floor of an apartment complex w no elevator and pt is on orders for no stairs. CM to follow: inform therapies of this request and living arrangement for d/c planning. Date Signed: 03/01/2017 04:15 PM Electronically Signed By:GHADA Krueger [facility] CM Progress Note CM Note CM Note Notes: Please see CM note from 03/01 also. PT/OT now recommending home w/24 hr care vs inpatient rehab. Pt stairs at apt complex is an issue since they live on 3rd floor w/no elevator. Met w/pt to discuss; his first choice would be to do a very short stay at inpatient rehab if he qualifies. We discussed option of hotel for few days but that didn't seem to be option since insurance would not cover. Left voicemail for Inpatient rehab and will follow up w/them in the AM. CM will also need to touch base w/MD regarding dc poc. CM will follow. Date Signed: 03/02/2017 05:26 PM Electronically Signed By:Caren Cisneros RN [facility] Progress Note CM Note CM Note Notes: Patient had hoped for a short rehab stint before returning home - he was declined by inpatient rehab for being too good, and [facility] was not able to receive insurance authorization today. Patient felt that he did not need to remain inpatient while waiting for the insurance authorization. He lives with his and [id number] who will help him get up the stairs into his home. Once he's upstairs, he feels safe taking care of himself. He will follow up with Dr German as directed. Date Signed: 03/04/2017 04:17 PM Electronically Signed By:Gely Connolly RN Intervention Information
== END 2017-03-04 20:22 | disposition home or self-care (01) | DRG 481 ==
LOC: F3N 05:43
PROVIDERS: ADMIT Orthopaedic Surgery Sports Medicine; ATTEND Orthopaedic Surgery Sports Medicine
PROC: 30233N1 Transfusion of Nonautologous Red Blood Cells into Peripheral Vein, Percutaneous Approach (ICD-10-PCS; principal; 2017-02-24 07:15)
PROC: 0SS904Z Reposition Right Hip Joint with Internal Fixation Device, Open Approach (ICD-10-PCS; principal; 2017-02-24 07:15)
PROC: 0Q820ZZ Division of Right Pelvic Bone, Open Approach (ICD-10-PCS; principal; 2017-02-24 07:15)
DX: M25.851 Other specified joint disorders, right hip (principal); Q65.89 Other specified congenital deformities of hip; D62 Acute posthemorrhagic anemia; R50.9 Fever, unspecified; K59.00 Constipation, unspecified
CPT/HCPCS: 97116-GP; 97161-GP; 97167-GO; 97530-GO; 97530-GP; 97535-GO; C1713; J0690; J1100; J1170; J2250; J2370; J2405; J2704; J2780; J3010; J7060; P9016; P9041

== ENCOUNTER 2017-09-22 10:42 | Day surgery (SDC) | payer OTHER ==
--- NOTE | 2017-09-21 21:25 | PDGENHP ---
History and Physical - Chief Complaint Right Hip Pain - History of Present Illness 1. Right~hip Dysplasia, S/p failed hip arthroscopy 11/06 for USAMA 2. 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 Left borderline Hip Dyplasia 4. Retro-Torsion HISTORY OF PRESENT ILLNESS: Rosalinais a 22 y.o.~very ~active male~who I have had the pleasure to consult on today. I have enjoyed meeting him. He~lives in [facility]. 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 ~He~is engaged; he~has no~children. Rosalina enjoys Hiking and all sports. Shavons has bilateral~hip pain, the Right hip started in November 2014 after he fell while hiking when his foot got caught on a tree root and he fell and twisted the leg. After this he was unable to run without pain, this persisted and he had a Right hip scope in October [address] Mckeon at the [facility]. He felt better for the first several weeks after surgery, while his activity was limited, but as soon as his activity increased his pain returned. His Left hip started bothering him in the past month or two, on this side he had no inciting injury or event. Prior to the fall he never had any hip pain, but he has always had limited ROM in the hips. Rosalinahas~a known history of hip dysplasia. Presentation today is of anterior bilateral~hip pain. The hip does~wake him~at night if he doesn't have a pillow between his legs; and does~click and catch on him. Sitting does not present a problem~for him. Rosalinadoes~report suffering from lower back pain episodes. Rosalinahas~participated in physical therapy and has~tried other conservative measures including massage therapy. He~has not~received sufficient symptomatic improvement. Rosalinahas not~utilized medication for pain management. Rosalinaunderstands that he~has a hip and pelvis problem which should be researched and wishes to get a better understanding of his~hip status, followed by an establishment of a treatment strategy, hoping he~would be able to get back to his~well being active life. History: Past medical history: ~ None which is relevant Relevant familial history: None which is relevant Past surgical history: No. Surgery Anesthesia Year Outcome 1 Tonsils General 1999 Good 2 Right Hip Scope General 2016 Poor Rosalinadenies problematic issues with general anesthesia in the past. I have reviewed, verified and agree with the past medical, surgical, family and social history. Current Medications:~currently has no medications in their medication list. ALLERGIES:~has No Known Allergies. Objective: Physical Examination: Rosalinais 5~feet 6~inches tall and weighs 167~Lbs. Rosalinais AAO x3; he~is well- nourished, in NAD. Skin is warm and dry. ~Breathing is non-labored. ~CV with RRR by pulse. Abdomen is soft, NTND. Currently, he~walks with a normal~gait. Trendelenburg sign is positive on the Right~and proprioception is normal, both~ sides. He~presents with no~signs of joint laxity. Beightons Score: 0 He~is fit looking. ~~ Lower spine examination is negative~for sciatic or femoral nerve irritation with negative~SLR &~femoral stretch tests. Range of motion of the spine is normal~for flexion, extension, and rotations, with no~associated pain. Strength, Sensation and pulses are normal - bilaterally Ankles and knees exams are normal~and no~mal-alignment is evident. He~has no leg length discrepancy. Thigh circumference is symmetric~with no evidence for muscle atrophy~on both~ sides. Hip ROM (degrees): FL ER At 90~hip FL IR At 90~hip FL AB AD EX IR Neutral hip ER Neutral hip R 100 45 15 35 5 5 20 45 L 105 40 15 40 5 5 30 25 Specific hip and pelvis tests: Quadrant PING Roll Add. Longus R +++ +++ Negative + L ++ Negative Negative Negative Glut. Med ITB Pos. Imp R Negative 5/5 strength Negative 5/5 strength Negative L Negative 5/5 strength Negative 5/5 strength Negative Squeeze test measured weak Bony Symphysis pubis is pain free~to touch while concentric activity of the rectus abdominis, does not~produce pain at its insertion. Ilio Psos specific tests are positive for pain during cycling for the right hip~ and remarkable for non painful snap~on both hips. HF has good strength with no pain on both hips. Anterior~capsule tenderness bilaterally. Greater trochanteric burse is pain free~on the left hip. Piriformis tests: FAIR is negative, with no~local signs of neuritis related to sciatic nerve. SIJs examination is normal~with normal~PING in relation and local tenderness. Hamstrings tests are negative~functional contraction and negative~tendinopathy both hips. On a daily basis, the following percentages reflect Steven's overall total Right hip~pain: Deep hip: 99% Low Back: 1% Imaging: Radiology studies which I have personally reviewed, analyzed and measured are below: XR: AP of the hip and pelvis: Performed in a suboptimal~technique Coccyx to pubic symphysis distance -0.8~cm. 10~degrees caudal [place] Lines are preserved. No~Pathological signs are seen in the Symphysis Pubis. No~Pathological signs are seen at the Ischial tuberosity. ~ Specific measurements show: NSA~ LCE Sourcil~Angle Sharp's angle Lat. Cam Lat. Pincer C.Over~sign Head~Coverage % ATDmm R N 17 14 41 - - - 65 N L N 23 12 41 - - - 72 N Pos. wall sign ISS NAD ~~Dysplasia Comments R + Negative 11~mm + L + Negative 12~mm + Sclerosis Sup. Lat. OA Cysts Joint Space-WBZ Joint Space-Medial R Negative Negative Negative 3.8~mm 4.9~mm L Negative Negative Negative 4.2~mm 4.5~mm X Table lateral: Anterior cam lesion is seen~on both hips. Alpha Angle: ~ Right 74~dergrees Left 98~degrees MRI Right Hip shows: Possible labral tear, cartilage intact on both sides CT: Possible anchor tracts anteriorly. Right hip: Lateral center edge angle: 15 degrees Anterior center edge angle: 45degrees Equatorial acetabular version angle: 21 degrees Cranial acetabular version angle: 4 degrees Femoral neck shaft angle: 136 degrees Femoral shaft torsion angle: (-9) degrees Left hip: Lateral center edge angle: 19 degrees Anterior center edge angle: 42 degrees Equatorial acetabular version angle: 29 degrees Cranial acetabular version angle: 10 degrees Femoral neck shaft angle: 140 degrees Femoral shaft torsion angle: (-4)~degrees Impression and plan: Steven~is a 22 y.o.~active male~suffering from symptomatic bilateral~hip pain (R >>>L) due to~right~Hip Dyplasia after failed scope 2016,~causing significant disability to him~and altering his~sport and life activities. Physical examination, imaging, and his~story correspond with the diagnosis mentioned above. I explained that hip dysplasia is a condition wherein the hip joint has excessive play~and instability due to a variety of factors, including the depth and adequacy of the socket, the orientation of the femur bone, and ligament laxity around the hip joint. Dysplasia ranges in severity from borderline to makeda, with treatment options being specific to the specific nature of the problem. Left untreated, the instability in the hip joint can cause progressive tearing of the labrum and deterioration of the surface cartilage, ultimately resulting in progressive osteoarthritis of the hip. I explained that femoroacetabular impingement (USAMA - Cam type) arises due to a bony or soft tissue conflict between the femur (ball) and acetabulum (socket) caused by an abnormality in the shape of the femoral head and neck. Over time, repetitive impingement can result in damage to the labrum and adjacent surface cartilage within the socket, ultimately giving rise to progressive osteoarthritis of the hip. I explained that although a labral tear can be a source of pain, it is rarely the root of the problem and typically occurs secondary to an underlying abnormality in the shape and mechanics of the hip joint. I reviewed conservative treatment options for Dysplasia and USAMA including activity modification to avoid positions of impingement or instability, physical therapy, non-steroidal anti-inflammatory medications, and various injections (corticosteroid and PRP) aimed at reducing inflammation in the hip joint or/and preventing dynamic instability and impingement. PRP injections may promote healing and reduce symptoms in certain cases but it will not repair chronically damaged tissue. Although these measures may help to buy time~and reduce current level of symptoms, they are not a definitive solution to the problem given the underlying abnormality in the shape of the hip joint. Patients who have failed conservative management and continue to experience symptoms are candidates for definitive surgical treatment, which may consist of hip arthroscopy alone or in combination with more invasive bony realignment procedures of the hip socket and/or femur called periacetabular osteotomy (HANNA) or derotational femoral osteotomy (DFO). Hip arthroscopy typically includes treating the labrum with either repair or reconstruction of the torn labrum; as well as addressing the underlying abnormalities by restoring the normal shape to the hip joint. If the cartilage is damaged a Microfracture surgical procedure may also be necessary to help stimulate the growth of fibrocartilage. If a patient requires a labral reconstruction or a Microfracture, the initial rehabilitation from the surgery may take longer, but the terminal system operator results are typically favorable. I reviewed the technical aspects of periacetabular osteotomy (HANNA) including risks, benefits, and expected course of recovery. Steven~understands that HANNA is an inpatient procedure carried out through two medium sized incisions on the front and back of the hip joint. The hip socket is cut, realigned, and stabilized with 2 3 internal screws. Risks include infection, bleeding, injury to nearby nerves or vessels, stiffness, persistent pain, instability, failure of bony healing, implant related complications, and venous thromboembolic disease. Rarely, revision surgery may be required to address these problems. Risks, potential complications, side effects and recovery from surgical procedure were discussed in length. We explained how this surgery is an open procedure, and though patients tend to do well in the long-term, it involves significant pain in the first 2-4 weeks post-op and a rather lengthy rehab.~Overall recovery takes approximately 6 12~months depending on the extent of damage and degree of repair. Steven~understands that he~will undergo hip arthroscopy 1 week prior to the HANNA to address damage inside the hip joint. Steven~understands that hip arthroscopy and HANNA are two separate procedures that are best performed one week apart, with the arthroscopy commencing first to "tighten up" any pathology evident in the hip joint (labral repair, etc.) and the HANNA open procedure occurring 7-10 days later to realign the acetabulum. I reviewed the technical aspects of derotational femoral osteotomy (DFO) including risks, benefits, and expected course of recovery.~Steven~understands that DFO is a minimally invasive inpatient procedure carried out through a small incision on the outer aspects of the hip joint. The femur bone is cut, realigned, and stabilized with a pati. Risks, potential complications, side effects and recovery from surgical procedure were discussed in length.~Steven~ understands that he/she will undergo hip arthroscopy 1 week prior to the DFO to address damage inside the hip joint to include labral repair and correction of Hip impingement. I reviewed the technical aspects of hip arthroscopy including risks, benefits, and expected course of recovery. Rosalinaunderstands that hip arthroscopy is a minimally invasive outpatient procedure carried out through small incisions on the outer aspect of the hip joint. During surgery, the labral tear will be identified and either repaired or reconstructed~using bone anchors and suture material. Additionally, any excessive bone will be removed with a high-speed gisela to reshape the hip joint and restore normal anatomy. Risks include infection, bleeding, injury to nearby nerves or vessels, stiffness, persistent pain, instability, venous thromboembolic disease, and traction related complications including temporary foot numbness. Rarely, revision surgery may be required to address these problems. Overall recovery takes approximately 4~ 8~months depending on the extent of damage and degree of repair. In the event that the labral tissue quality is inadequate for successful repair and healing, Rosalinaunderstands that a labral reconstruction will be performed. This procedure entails placing a cadaver tissue graft within the hip joint and stabilizing it with bone anchors to build a new labrum. The overall recovery time for labral reconstruction is similar to that of labral repair, although the surgical procedure takes longer to perform. Rosalinawill review the info presented. In order to obtain more detailed information regarding the alignment, orientation, and shape of the bony hip and pelvis I will order a CT scan to be performed. The results of the CT scan, including femoral torsion and acetabular version measured values and 3D images, will aid me in deciding on the best treatment strategy and surgical pre-planning. Rosalinawill talk with our rn surgical about possible surgery dates. Rosalinais happy with this plan. I have also supplied him~with handouts, outlining the expected surgical treatment and rehab involved. I wish~Rosalinaall the best, ~~ Rony Koehler IV, MD History Information - Allergies/Home Medication List Allergies/Adverse Reactions: No Known Allergies Allergy (Unverified 01/15/17 16:54) Home Medications: NK [No Known Home Meds] 09/16/17 [Last Taken Unknown] I have personally reviewed and updated: medical history - Social History Smoking Status: Never smoked Review of Systems Review of Systems: Physical Exam Physical Exam:
[2017-09-22] MEDS ORDERED: LR 1,000 ML IV ONE (10:48)
[2017-09-22] MEDS ORDERED: ceFAZolin 2 GM/DEXTROSE 100 ML IV ONE (10:48)
[2017-09-22] MEDS ORDERED: ACETAMINOPHEN 500 MG TAB PO ONE (10:48)
[2017-09-22] MEDS ORDERED: PREGABALIN 150 MG CAP PO ONE (10:48)
[2017-09-22] MEDS ORDERED: LIDOCAINE 1% 300 MG/30 ML SDV ONE (12:56)
[2017-09-22] MEDS ORDERED: BUPIVACAINE/EPI 0.5% 30 ML SDV ONE (12:56)
--- NOTE | 2017-09-22 13:01 | PDANEPAE ---
ANE History of Present Illness 22 year old male for removal of hardware from hip (previous HANNA) and avulsion reduction. ANE Past Medical History - Cardiovascular History Hx Hypertension: No Hx Arrhythmias: No Hx Chest Pain: No Hx Coronary Artery / Peripheral Vascular Disease: No Hx CHF / Valvular Disease: No Hx Palpitations: No - Pulmonary History Hx COPD: No Hx Asthma/Reactive Airway Disease: No Hx Recent Upper Respiratory Infection: No Hx Oxygen in Use at Home: No Hx Sleep Apnea: No Sleep Apnea Screening Result - Last Documented: Negative - Neurologic History Hx Cerebrovascular Accident: No Hx Seizures: No Hx Dementia: No - Endocrine History Hx Diabetes: No - Renal History Hx Renal Disorders: No - Liver History Hx Hepatic Disorders: No - Neurological & Psychiatric Hx Hx Neurological and Psychiatric Disorders: No - Cancer History Hx Cancer: No - Congenital Disorder History Hx Congenital Disorders: Yes Congenital History Comment: RT HIP - GI History Hx Gastrointestinal Disorders: No - Other Health History Other Health History: R hip-possible labral tear,. R hip dysplasia - Chronic Pain History Chronic Pain: Yes (R hip) - Surgical History Prior Surgeries: RT HIP PERIACETABULAR OSTEOTOMY. WITH POST OP BLOOD TRANSFUSIONS 02/24/17. RT HIP SCOPE LABRAL REPAIR 02/12/17. R hip arthroscopy 8 -16. tonsillectomy ANE Review of Systems Review of systems is: negative Review of Systems: - Exercise capacity Exercise capacity: >=4 METS METS (RN): 4 METS ANE Patient History - Allergies Allergies/Adverse Reactions: No Known Allergies Allergy (Unverified 01/15/17 16:54) - Home Medications Home medications: home medication list seen and reviewed Home Medications: NK [No Known Home Meds] 09/16/17 [Last Taken Unknown] - NPO status NPO Status: no food or drink >8 hours NPO Since - Liquids (Date): 09/22/17 NPO Since - Liquids (Time): 08:00 NPO Since - Solids (Date): 09/21/17 NPO Since - Solids (Time): 19:00 - Anes Hx Anes Hx: no prior problems - Smoking Hx Smoking Status: Never smoked Marijuana use: No - Alcohol Use Alcohol Use: None - Family Anes Hx Family Anes Hx: neg - N/A ANE Labs/Vital Signs - Vital Signs Vital Signs: reviewed preoperatively; see RN documention for details Blood Pressure: 121/66 Heart Rate: 56 Respiratory Rate: 15 O2 Sat (%): 98 Height: 165.1 cm Weight: 74.843 kg ANE Physical Exam - Airway Neck exam: FROM Mallampati Score: Class 2 Mouth exam: normal dental/mouth exam - Pulmonary Pulmonary: no respiratory distress - Cardiovascular Cardiovascular: regular rate and rhythym - ASA Status ASA Status: I ANE Anesthesia Plan Anesthesia Plan: general endotracheal anesthesia Total IV Anesthesia: No
[2017-09-22] MEDS ORDERED: MIDAZOLAM 2 MG/2 ML VIAL IVP ONE (13:57)
[2017-09-22] MEDS ORDERED: fentaNYL 100 MCG/2 ML INJ ONE (14:03)
[2017-09-22] MEDS ORDERED: PROPOFOL 200 MG/20 ML VIAL ONE (14:03)
[2017-09-22] MEDS ORDERED: ROCURONIUM 50 MG/5 ML VIAL ONE (14:03)
[2017-09-22] MEDS ORDERED: LIDOCAINE 2% 5 ML SDV ONE (14:03)
[2017-09-22] MEDS ORDERED: DEXAMETHASONE 4 MG/ML VIAL ONE (14:09)
[2017-09-22] MEDS ORDERED: ONDANSETRON 4 MG/2 ML VIAL ONE ×2 (14:09→18:37)
[2017-09-22] MEDS ORDERED: ePHEDrine SULFATE 25 MG/5 ML SYR ONE (14:34)
[2017-09-22] MEDS ORDERED: DIAZEPAM 5 MG/ML 1 ML SYR IVP PRN (14:36)
[2017-09-22] MEDS ORDERED: fentaNYL 100 MCG/2 ML INJ IVP PRN (14:36)
[2017-09-22] MEDS ORDERED: ACETAMINOPHEN 500 MG TAB PO PRN (14:36)
[2017-09-22] MEDS ORDERED: PHENYLEPHRINE HCL 100 MCG/ML SYR IVP PRN (14:36)
[2017-09-22] MEDS ORDERED: HYDROmorphONE/DILAUDID 1 MG/ML INJ IVP PRN (14:36)
[2017-09-22] MEDS ORDERED: LR 500 ML IV PRN (14:36)
[2017-09-22] MEDS ORDERED: NALOXONE HCL 0.4 MG/ML INJ IVP PRN (14:36)
[2017-09-22] MEDS ORDERED: oxyCODONE IR 5 MG TAB PO PRN (14:36)
[2017-09-22] MEDS ORDERED: ONDANSETRON 4 MG/2 ML VIAL IVP PRN (14:36)
[2017-09-22] MEDS ORDERED: SUGAMMADEX SODIUM 200 MG/2 ML VIAL IVP ONE (14:41)
[2017-09-22] MEDS ORDERED: PHENYLEPHRINE HCL 100 MCG/ML SYR ONE (15:00)
[2017-09-22] MEDS ORDERED: oxyCODONE IR 5 MG TAB ONE (18:34)
[2017-09-22] MEDS ORDERED: ACETAMINOPHEN 500 MG TAB ONE (18:34)
[2017-09-22 18:54] VITALS: BP 109/56
--- NOTE | 2017-09-23 07:48 | POSTANESTH ---
Post Anesthetic Evaluation Cardiovascular Status: Normal, Stable, Similar to Pre-Op Cond Respiratory Status: Normal, Stable, Similar to Pre-op Cond. Level of Consciousness/Mental Status: Can Participate in Eval, Alert and Oriented Pain Control: Adequate, Prn Tx Ordered Nausea/Vomiting Control: Adequate, Prn Tx Ordered Complications Possibly Related to Anesthesia: None Noted
== END 2017-09-22 19:03 | disposition home or self-care (01) ==
LOC: FSGY 10:42
PROVIDERS: ATTEND Orthopaedic Surgery Sports Medicine
PROC: 0QP204Z Removal of Internal Fixation Device from Right Pelvic Bone, Open Approach (ICD-10-PCS; principal; 2017-09-22 12:30)
DX: T84.84XA Pain due to internal orthopedic prosthetic devices, implants and grafts, initial encounter (principal)
CPT/HCPCS: C1713; J0690; J1100; J2250; J2370; J2405; J2704; J3010

== ENCOUNTER 2018-02-23 05:51 | Day surgery (SDC) | payer OTHER ==
--- NOTE | 2018-02-22 17:48 | PDGENHP ---
History and Physical - Chief Complaint RIGHT HIP PAIN - History of Present Illness 1. Right~hip Dysplasia, S/p failed hip arthroscopy 11/06 for USAMA 2. 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 Left borderline~Hip Dyplasia 4. Retro-Torsion 5. History of RIGHT DFO HISTORY OF PRESENT ILLNESS: Rosalinais a 22 y.o.~very~~active male~who I have had the pleasure to consult on today. 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 Rosalina enjoys Hiking and all sports. Shavons~has~bilateral~hip pain, the Right hip started in November 2014 after he fell while hiking when his foot got caught on a tree root and he fell and twisted the leg. After this he was unable to run without pain, this persisted and he had a Right hip scope in October [address] [facility]. He felt better for the first several weeks after surgery, while his activity was limited, but as soon as his activity increased his pain returned. His Left hip started bothering him in the past month or two, on this side he had no inciting injury or event. Prior to the fall he never had any hip pain, but he has always had limited ROM in the hips.~Rosalinahas~a known history of hip dysplasia. Presentation today is of~anterior~bilateral~hip pain. The hip~does~wake him~at night if he doesn't have a pillow between his legs; and~does~click and catch on him. Sitting~does not present a problem~for him.~Rosalinadoes~report suffering from lower back pain episodes. Rosalinahas~participated in physical therapy and has~tried other conservative measures including massage therapy.~He~has not~received sufficient symptomatic improvement. Rosalinahas not~utilized medication for pain management. Rosalinaunderstands that he~has a hip and pelvis problem which should be researched and wishes to get a better understanding of his~hip status, followed by an establishment of a treatment strategy, hoping he~would be able to get back to his~well being active life. History: Past medical history:~~ None which is relevant~ Relevant familial history:~None which is relevant~ Past surgical history:~ No. Surgery Anesthesia Year Outcome 1 Tonsils General 1999 Good 2 Right Hip Scope General 2016 Poor Rosalinadenies problematic issues with general anesthesia in the past. I have reviewed, verified and agree with the past medical, surgical, family and social history. Current Medications:~currently has no medications in their medication list. ALLERGIES:~has No Known Allergies. Objective: Physical Examination: Rosalinais 5~feet 6~inches tall and weighs 167~Lbs. Rosalinais AAO x3; abdoulaye~is well- nourished, in NAD. Skin is warm and dry. ~Breathing is non-labored. ~CV with RRR by pulse. Abdomen is soft, NTND. Currently,~abdoulaye~walks with a normal~gait. Trendelenburg sign is~positive~on the Right~and proprioception is normal,~both~ sides. He~presents with no~signs of joint laxity. Beightons Score:~0 He~is fit looking. ~~ Lower spine examination is~negative~for sciatic or femoral nerve irritation with negative~SLR &~femoral stretch tests. Range of motion of the spine is normal~for flexion, extension, and rotations, with no~associated pain. Strength, Sensation and pulses are~normal -~bilaterally Ankles and knees exams are~normal~and no~mal-alignment is evident. He~has no leg length discrepancy. Thigh circumference is~symmetric~with no evidence for muscle atrophy~on both~ sides. Hip ROM (degrees): FL ER At 90~hip FL IR At 90~hip FL AB AD EX IR Neutral hip ER Neutral hip R 100 45 15 35 5 5 20 45 L 105 40 15 40 5 5 30 25 Specific hip and pelvis tests: Quadrant PING Roll Add. Longus R +++ +++ Negative + L ++ Negative Negative Negative Glut. Med ITB Pos. Imp R Negative 5/5 strength Negative 5/5 strength Negative L Negative 5/5 strength Negative 5/5 strength Negative Squeeze test measured~weak Bony Symphysis pubis is~pain free~to touch while concentric activity of the rectus abdominis, does not~produce pain at its insertion. Ilio Psos specific tests are~positive for pain during cycling for~the right hip~ and remarkable for non painful snap~on both hips. HF has~good strength with no pain on~both hips. Anterior~capsule tenderness bilaterally. Greater trochanteric burse is~pain free~on the left hip. Piriformis tests: FAIR is~negative,~with no~local signs of neuritis related to sciatic nerve. SIJs examination is~normal~with normal~PING in relation and local tenderness. Hamstrings tests are~negative~functional contraction and negative~tendinopathy both hips. On a daily basis, the following percentages reflect~Steven's overall total~ Right hip~pain: Deep hip:~99% Low Back:~1% Imaging: Radiology studies which I have personally reviewed, analyzed and measured are below: XR: AP of the hip and pelvis: Performed in a~suboptimal~technique Coccyx to pubic symphysis distance~-0.8~cm. 10~degrees caudal [place] Lines are~preserved. No~Pathological signs are seen in the Symphysis Pubis. No~Pathological signs are seen at the Ischial tuberosity. ~ Specific measurements show: NSA~ LCE Sourcil~Angle Sharp's angle Lat. Cam Lat. Pincer C.Over~sign Head~Coverage % ATDmm R N 17 14 41 - - - 65 N L N 23 12 41 - - - 72 N Pos. wall sign ISS NAD ~~Dysplasia Comments R + Negative 11~mm + L + Negative 12~mm + Sclerosis Sup. Lat. OA Cysts Joint Space-WBZ Joint Space-Medial R Negative Negative Negative 3.8~mm 4.9~mm L Negative Negative Negative 4.2~mm 4.5~mm X Table lateral: Anterior cam lesion is~seen~on both hips. Alpha Angle: ~ Right~74~dergrees Left~98~degrees MRI~Right Hip~shows:~Possible labral tear, cartilage intact on both sides CT: Possible anchor tracts anteriorly. Right hip: Lateral center edge angle: 15 degrees Anterior center edge angle: 45degrees Equatorial acetabular version angle: 21 degrees Cranial acetabular version angle: 4 degrees Femoral neck shaft angle: 136 degrees Femoral shaft torsion angle:~(-9) degrees Left hip: Lateral center edge angle: 19 degrees Anterior center edge angle: 42 degrees Equatorial acetabular version angle: 29 degrees Cranial acetabular version angle: 10 degrees Femoral neck shaft angle: 140 degrees Femoral shaft torsion angle:~(-4)~degrees Impression and plan:Janette Romanois a 22 y.o.~active male~suffering from symptomatic bilateral~hip pain (R >>>L)~due to~right~Hip Dyplasia after failed scope 2016,~causing significant disability to him~and altering his~sport and life activities. Physical examination, imaging, and~his~story correspond with the diagnosis mentioned above. I explained that hip dysplasia is a condition wherein the hip joint has excessive play~and instability due to a variety of factors, including the depth and adequacy of the socket, the orientation of the femur bone, and ligament laxity around the hip joint. Dysplasia ranges in severity from borderline to makeda, with treatment options being specific to the specific nature of the problem. Left untreated, the instability in the hip joint can cause progressive tearing of the labrum and deterioration of the surface cartilage, ultimately resulting in progressive osteoarthritis of the hip. I explained that femoroacetabular impingement (USAMA - Cam type) arises due to a bony or soft tissue conflict between the femur (ball) and acetabulum (socket) caused by an abnormality in the shape of the femoral head and neck. Over time, repetitive impingement can result in damage to the labrum and adjacent surface cartilage within the socket, ultimately giving rise to progressive osteoarthritis of the hip. I explained that although a labral tear can be a source of pain, it is rarely the root of the problem and typically occurs secondary to an underlying abnormality in the shape and mechanics of the hip joint. I reviewed conservative treatment options for Dysplasia and USAMA including activity modification to avoid positions of impingement or instability, physical therapy, non-steroidal anti-inflammatory medications, and various injections (corticosteroid and PRP) aimed at reducing inflammation in the hip joint or/and preventing dynamic instability and impingement. PRP injections may promote healing and reduce symptoms in certain cases but it will not repair chronically damaged tissue. Although these measures may help to buy time~and reduce current level of symptoms, they are not a definitive solution to the problem given the underlying abnormality in the shape of the hip joint. Patients who have failed conservative management and continue to experience symptoms are candidates for definitive surgical treatment, which may consist of hip arthroscopy alone or in combination with more invasive bony realignment procedures of the hip socket and/or femur called periacetabular osteotomy (HANNA) or derotational femoral osteotomy (DFO). Hip arthroscopy typically includes treating the labrum with either repair or reconstruction of the torn labrum; as well as addressing the underlying abnormalities by restoring the normal shape to the hip joint. If the cartilage is damaged a Microfracture surgical procedure may also be necessary to help stimulate the growth of fibrocartilage. If a patient requires a labral reconstruction or a Microfracture, the initial rehabilitation from the surgery may take longer, but the chcf results are typically favorable. I reviewed the technical aspects of periacetabular osteotomy (HANNA) including risks, benefits, and expected course of recovery.~Steven~understands that HANNA is an inpatient procedure carried out through two medium sized incisions on the front and back of the hip joint. The hip socket is cut, realigned, and stabilized with 2 3 internal screws. Risks include infection, bleeding, injury to nearby nerves or vessels, stiffness, persistent pain, instability, failure of bony healing, implant related complications, and venous thromboembolic disease. Rarely, revision surgery may be required to address these problems. Risks, potential complications, side effects and recovery from surgical procedure were discussed in length. We explained how this surgery is an open procedure, and though patients tend to do well in the long-term, it involves significant pain in the first 2-4 weeks post-op and a rather lengthy rehab.~Overall recovery takes approximately 6 12~months depending on the extent of damage and degree of repair. Steven~understands that he~will undergo hip arthroscopy 1 week prior to the HANNA to address damage inside the hip joint. Steven~understands that hip arthroscopy and HANNA are two separate procedures that are best performed one week apart, with the arthroscopy commencing first to "tighten up" any pathology evident in the hip joint (labral repair, etc.) and the HANNA open procedure occurring 7-10 days later to realign the acetabulum. I reviewed the technical aspects of derotational femoral osteotomy (DFO) including risks, benefits, and expected course of recovery.~Steven~understands that DFO is a minimally invasive inpatient procedure carried out through a small incision on the outer aspects of the hip joint. The femur bone is cut, realigned, and stabilized with a pati. Risks, potential complications, side effects and recovery from surgical procedure were discussed in length.~Rosalina understands that he/she will undergo hip arthroscopy 1 week prior to the DFO to address damage inside the hip joint to include labral repair and correction of Hip impingement. I reviewed the technical aspects of hip arthroscopy including risks, benefits, and expected course of recovery.~StevenJanetteunderstands that hip arthroscopy is a minimally invasive outpatient procedure carried out through small incisions on the outer aspect of the hip joint. During surgery, the labral tear will be identified and either repaired or reconstructed~using bone anchors and suture material. Additionally, any excessive bone will be removed with a high-speed gisela to reshape the hip joint and restore normal anatomy. Risks include infection, bleeding, injury to nearby nerves or vessels, stiffness, persistent pain, instability, venous thromboembolic disease, and traction related complications including temporary foot numbness. Rarely, revision surgery may be required to address these problems. Overall recovery takes approximately 4~ 8~months depending on the extent of damage and degree of repair. In the event that the labral tissue quality is inadequate for successful repair and healing,~StevenJanetteunderstands that a labral reconstruction will be performed. This procedure entails placing a cadaver tissue graft within the hip joint and stabilizing it with bone anchors to build a new labrum. The overall recovery time for labral reconstruction is similar to that of labral repair, although the surgical procedure takes longer to perform. Rosalinawill review the info presented. In order to obtain more detailed information regarding the alignment, orientation, and shape of the bony hip and pelvis I will order a CT scan to be performed. The results of the CT scan, including femoral torsion and acetabular version measured values and 3D images, will aid me in deciding on the best treatment strategy and surgical pre-planning. 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 Rosalinais happy with this plan. I have also supplied~him~with handouts, outlining the expected surgical treatment and rehab involved. I wish~Rosalinaall the best, ~~ Rony Koehler IV, MD History Information - Allergies/Home Medication List Allergies/Adverse Reactions: No Known Allergies Allergy (Verified 02/13/18 15:28) Home Medications: NK [No Known Home Meds] 09/16/17 [Last Taken Unknown] I have personally reviewed and updated: medical history - Social History Smoking Status: Never smoked Review of Systems Review of Systems: Physical Exam Physical Exam:
[2018-02-23] MEDS ORDERED: ceFAZolin 2 GM/DEXTROSE 100 ML IV ONE (06:16)
[2018-02-23] MEDS ORDERED: PREGABALIN 150 MG CAP PO ONE (06:16)
[2018-02-23] MEDS ORDERED: ACETAMINOPHEN 500 MG TAB PO ONE (06:16)
[2018-02-23] MEDS ORDERED: LR 1,000 ML IV ONE (06:19)
[2018-02-23] MEDS ORDERED: LIDOCAINE 1% 300 MG/30 ML SDV ONE (06:36)
[2018-02-23] MEDS ORDERED: MIDAZOLAM 2 MG/2 ML VIAL IVP ONE (07:03)
[2018-02-23] MEDS ORDERED: PROPOFOL 200 MG/20 ML VIAL ONE (07:06)
[2018-02-23] MEDS ORDERED: fentaNYL 100 MCG/2 ML INJ ONE (07:06)
[2018-02-23] MEDS ORDERED: DEXAMETHASONE 4 MG/ML VIAL ONE ×2 (07:07)
[2018-02-23] MEDS ORDERED: ONDANSETRON 4 MG/2 ML VIAL ONE (07:07)
[2018-02-23] MEDS ORDERED: MIDAZOLAM 2 MG/2 ML VIAL ONE (07:07)
[2018-02-23] MEDS ORDERED: LIDOCAINE 2% 2 ML INJ ONE ×3 (07:07)
--- NOTE | 2018-02-23 07:21 | PDANEPAE ---
ANE History of Present Illness hardware removal s/p HANNA ANE Past Medical History - Cardiovascular History Hx Hypertension: No Hx Arrhythmias: No Hx Chest Pain: No Hx Coronary Artery / Peripheral Vascular Disease: No Hx CHF / Valvular Disease: No Hx Palpitations: No - Pulmonary History Hx COPD: No Hx Asthma/Reactive Airway Disease: No Hx Recent Upper Respiratory Infection: No Hx Oxygen in Use at Home: No Hx Sleep Apnea: No Sleep Apnea Screening Result - Last Documented: Negative - Neurologic History Hx Cerebrovascular Accident: No Hx Seizures: No Hx Dementia: No - Endocrine History Hx Diabetes: No Hypothyroid: No Hyperthyroid: No Obesity: no - Renal History Hx Renal Disorders: No - Liver History Hx Hepatic Disorders: No - Neurological & Psychiatric Hx Hx Neurological and Psychiatric Disorders: No - Cancer History Hx Cancer: No - Congenital Disorder History Hx Congenital Disorders: Yes Congenital History Comment: right hip dysplagia - GI History Hx Gastrointestinal Disorders: No - Other Health History Other Health History: right sided lumbar pain r/t hip hardware causing limp - Chronic Pain History Chronic Pain: Yes (low back) - Surgical History Prior Surgeries: right hip screw removal, 09/22/17. RT HIP PERIACETABULAR OSTEOTOMY. WITH POST OP BLOOD TRANSFUSIONS 02/24/17. RT HIP SCOPE LABRAL REPAIR 02/12/17. R hip arthroscopy 11-06. tonsillectomy ANE Review of Systems Review of systems is: negative Review of Systems: - Exercise capacity Exercise capacity: >=4 METS METS (RN): 5 METS ANE Patient History - Allergies Allergies/Adverse Reactions: No Known Allergies Allergy (Verified 02/13/18 15:28) - Home Medications Home medications: none Home Medications: NK [No Known Home Meds] 09/16/17 [Last Taken Unknown] - NPO status NPO Status: no food or drink >8 hours NPO Since - Liquids (Date): 02/22/18 NPO Since - Liquids (Time): 21:00 NPO Since - Solids (Date): 02/22/18 NPO Since - Solids (Time): 21:00 - Anes Hx Anes Hx: no prior problems - Smoking Hx Smoking Status: Never smoked - Family Anes Hx Family Hx Anesthesia Complications: none ANE Labs/Vital Signs - Vital Signs Blood Pressure: 109/56 Heart Rate: 54 Respiratory Rate: 16 O2 Sat (%): 96 Height: 165 cm Weight: 77.111 kg ANE Physical Exam - Airway Neck exam: FROM Mouth exam: normal dental/mouth exam - Pulmonary Pulmonary: no respiratory distress - Cardiovascular Cardiovascular: regular rate and rhythym - ASA Status ASA Status: I ANE Anesthesia Plan Anesthesia Plan: GA w LMA
[2018-02-23] MEDS ORDERED: MEPERIDINE 25 MG/0.5 ML AMP IVP PRN (07:47)
[2018-02-23] MEDS ORDERED: HYDROmorphONE/DILAUDID 2 MG/ML INJ IVP PRN (07:47)
[2018-02-23] MEDS ORDERED: LR 500 ML IV PRN (07:47)
[2018-02-23] MEDS ORDERED: NALOXONE HCL 0.4 MG/ML INJ IVP PRN (07:47)
[2018-02-23] MEDS ORDERED: METOCLOPRAMIDE 10 MG/2 ML VIAL IVP PRN (07:47)
[2018-02-23] MEDS ORDERED: oxyCODONE IR 5 MG TAB PO PRN (07:47)
[2018-02-23] MEDS ORDERED: fentaNYL 100 MCG/2 ML INJ IVP PRN (07:47)
[2018-02-23] MEDS ORDERED: LABETALOL HCL 20 MG/4 ML INJ IVP PRN (07:47)
[2018-02-23] MEDS ORDERED: PROMETHAZINE HCL 25 MG/ML INJ IVP PRN (07:47)
[2018-02-23] MEDS ORDERED: ACETAMINOPHEN 500 MG TAB PO PRN (07:47)
[2018-02-23] MEDS ORDERED: ALBUTEROL 3 ML DEYVIAL IH PRN (07:47)
[2018-02-23] MEDS ORDERED: KETOROLAC 30 MG/1 ML SDV ONE (08:21)
[2018-02-23] MEDS ORDERED: HYDROGEN PEROXIDE 473 ML BOTTLE TP ONE (08:33)
--- NOTE | 2018-02-23 10:16 | POSTANESTH ---
Post Anesthetic Evaluation Cardiovascular Status: Normal, Stable Respiratory Status: Normal, Stable Level of Consciousness/Mental Status: Can Participate in Eval Pain Control: Adequate, Prn Tx Ordered Nausea/Vomiting Control: Adequate, Prn Tx Ordered Complications Possibly Related to Anesthesia: None Noted
[2018-02-23 12:50] VITALS: BP 113/65
== END 2018-02-23 12:30 | disposition home or self-care (01) ==
LOC: FSGY 05:51
PROVIDERS: ATTEND Orthopaedic Surgery Sports Medicine
PROC: 0QP604Z Removal of Internal Fixation Device from Right Upper Femur, Open Approach (ICD-10-PCS; principal; 2018-02-23 07:15)
DX: T84.84XA Pain due to internal orthopedic prosthetic devices, implants and grafts, initial encounter (principal)
CPT/HCPCS: J0690; J1100; J1885; J2250; J2405; J2704; J3010